=== PATIENT | male | born 1945 | race Caucasian/White ===

== ENCOUNTER → 2017-07-06 08:13 | Outpatient (CLI) | payer MEDICARE, BC, SELFPAY ==
[2017-07-06 09:32] LABS: Add Manual Diff / Slide Review NO; Basophils Percent Auto 1.1 % (0-2); Eosinophils Percent Auto 3.5 % (2-4); Hematocrit 39.4 % (41-53); Hemoglobin 13.5 g/dL (13.5-17.5); Lymphocytes Percent Auto 35.3 % (25-40); Mean Corpuscular HGB Conc 34.4 % (30-36); Mean Corpuscular Hemoglobin 29.5 PG (26-34); Mean Corpuscular Volume 85.9 fL (80-100); Monocytes Percent Auto 11.2 % (3-14); Neutrophils Absolute Auto 2100 /uL (3000-5900); Neutrophils Percent Auto 48.9 % (50-75); Platelet Count 170 X10^3/uL (150-400); Red Blood Cell Count 4.59 X10^6/uL (4.5-5.9); Red Cell Distribution Width 13.6 % (11.6-14.8); White Blood Cell Count 4.2 X10^3/uL (4.5-11.0)
[2017-07-06 09:57] LABS: Hemoglobin A1C% w Est Avg Glu 6.5 % (4.0-6.0)
[2017-07-06 09:58] LABS: Alanine Aminotransferase 47 IU/L (21-72); Albumin Globulin Ratio 1.5 (1.0-2.8); Alkaline Phosphatase 52 U/L (38-126); Aspartate Aminotransferase 28 IU/L (17-59); BUN Creatinine Ratio 18.6 (6-22); Bilirubin Total 0.9 mg/dL (0.2-1.3); Blood Urea Nitrogen 13 mg/dL (9-20); Calcium 8.7 mg/dL (8.4-10.2); Carbon Dioxide 33 mmol/L (22-32); Chloride 101 mmol/L (98-107); Cholesterol 142 mg/dL (140-199); Estimated Glomerular Filt Rate > 60.0 mL/min (>60); Globulin 2.7 g/dL (1.7-4.1); Glucose 98 mg/dL (80-110); HDL Cholesterol 54 mg/dL (40-60); HEMOLYSIS < 15 (0-50); LDL Cholesterol Calculated 65 mg/dL (<100); Potassium 3.7 mmol/L (3.4-5.1); Sodium 143 mmol/L (137-145); Total Protein 6.7 g/dL (6.3-8.2); Triglycerides 113 mg/dL (35-150)
[2017-07-06 16:07] LABS: Creatinine Urine Random 152.6 mg/dL
[2017-07-06 16:10] LABS: Microalbumi Creatinin Ratio Ur 23.5 ug/mg CR (<30); Microalbumin Urine Random 3.6 mg/dL (0-1.6)
== END ==
PROVIDERS: PCP Family Medicine; Visit Provider Family Medicine
DX: E11.9 Type 2 diabetes mellitus without complications (principal); E78.00 Pure hypercholesterolemia, unspecified; Z79.4 Long term (current) use of insulin
CPT/HCPCS: 36415; 80053; 80061; 82043; 82570; 83036; 85025

== ENCOUNTER 2017-09-15 08:56 | Emergency (ER) | payer MEDICARE, BC, SELFPAY ==
[2017-09-15 09:03] VITALS: BP 151/99; PULSE 67; RESP 15; TEMP 36.7; O2SAT 98; BMI 32.1
--- NOTE | 2017-09-15 09:03 | DI.RAD.S_ITS ---
PROCEDURE: XR KNEE LT 3V INDICATIONS: pain and swelling TECHNIQUE: 3 views of the knee were acquired. COMPARISON: [facility], , KNEE 3V LEFT, 09/06/2007, 8:38. FINDINGS: Bones: No fractures or dislocations. No suspicious bony lesions. Moderate lateral and medial compartment osteophytes. Severe patellofemoral compartment osteoarthritis. Soft tissues: Large suprapatellar joint effusion.. No suspicious soft tissue calcifications. IMPRESSION: 1. No fracture. No acute osseous lesion. If symptoms and/or clinical suspicion for pathology persists, further assessment with repeat radiographs (7-10 days) or advanced imaging (e.g. CT, MRI or bone scan) may be helpful. 2. Large nonspecific joint effusion. Dictated by: Erica Iniguez MD, PhD on 09/15/2017 at 8:27 Approved by: Erica Iniguez MD, PhD on 09/15/2017 at 8:28
--- NOTE | 2017-09-15 09:13 | ED.LOWEXIN ---
HPI - Extremity Injury (Lower) General Chief Complaint: Extremity Injury, Lower Stated Complaint: damaged left knee Time Seen by Provider: 09/15/17 09:13 Source: patient Mode of arrival: ambulatory Limitations: no limitations History of Present Illness HPI Narrative: Patient states he slipped and fell several days ago, but that over the last 24 hr, he has noticed that his knee has become more swollen. The patient has severe arthritis of his left knee and a weight, and has been told he needs a knee replacement. Patient denies any erythema over the knee, and denies immobility of the knee. No fevers. MD complaint: knee injury Onset (ago): day(s) Injury: Left: knee Type of Injury: blunt Severity: moderate Severity scale (1-10): 6 Exacerbating factors: nothing Context: fall Associated symptoms: swelling and ambulatory Other symptoms: none Related Data Home Medications Medication Instructions Recorded Confirmed loratadine [Claritin] 10 mg PO Q DAY PRN #0 08/28/10 09/15/17 multivitamin 1 tab PO DAILY #0 08/28/10 09/15/17 flaxseed oil 1 cap PO DAILY #0 11/13/10 09/15/17 Glucosamine Sulf-Chondroitin 1 tab PO BID #0 11/18/15 09/15/17 ascorbic acid (vitamin C) [Vitamin 1,000 mg PO QDAY #0 11/18/15 09/15/17 C] aspirin 81 mg PO QDAY #30 tab 11/18/15 09/15/17 Glucose: Home Monitoring Kit 0 kit DAILY 09/15/17 09/15/17 Hoffman 0 dev DAILY 09/15/17 09/15/17 atorvastatin 40 mg PO BEDTIME 09/15/17 09/15/17 Previous Rx's Medication Instructions Recorded Glucose: Test Strips 0 str QID #200 str 07/21/16 sitagliptin [Januvia] 100 mg PO QDAY #90 tab 07/21/16 hydrochlorothiazide 25 mg tablet 25 mg PO QDAY #90 tab 06/16/17 clopidogrel 75 mg tablet 75 mg PO QDAY #90 tab 06/24/17 finasteride 5 mg tablet 5 mg PO QDAY #90 tab 07/01/17 metoprolol tartrate 50 mg tablet 100 mg PO BID #360 tab 07/01/17 hydralazine 50 mg tablet 50 mg PO BID #180 tab 07/22/17 losartan 50 mg tablet 50 mg PO Q DAY #90 tab 07/22/17 metformin ER 500 mg 500 - 1,000 mg PO BID #180 tab 07/22/17 tablet,extended release 24 hr nifedipine ER 30 mg 30 mg PO Q DAY #90 tab 07/22/17 tablet,extended release 24 hr insulin glargine (U-100) 100 50 unit SUBCUT QDAY #9 ml 09/01/17 unit/mL (3 mL) subcutaneous pen hydrocodone-acetaminophen 1 tab PO Q4-6H PRN #10 tab 09/15/17 Allergies Allergy/AdvReac Type Severity Reaction Status Date / Time tamsulosin [TAMSULOSIN] AdvReac Severe DIARRHEA Verified 09/15/17 09:03 AND NAUSEA Review of Systems Review of Systems All systems reviewed & are unremarkable except as noted in HPI and below PFSH Social History Smoking Status: Never smoker Exam Initial Vital Signs Initial Vital Signs: Vital Signs Temperature 98.0 F 09/15/17 09:03 Pulse Rate 67 09/15/17 09:03 Respiratory Rate 15 09/15/17 09:03 Blood Pressure 151/99 H 09/15/17 09:03 Pulse Oximetry 98 09/15/17 09:03 Const General: cooperative and well developed Nutritional Appearance: well nourished Orientation: alert, awake, oriented x3 and not confused [facility] Head: normocephalic and atraumatic Ears: external ears normal Nose: external nose normal and No nasal discharge Face and sinus: sinuses nontender, face symmetric, no sinus tenderness and No dry mucous membranes Mouth: oral mucosae normal and moist mucous membranes Teeth and gingiva: dentition normal Throat: tonsils normal and uvula midline Eyes General: appearance normal, both eyes and all related structures Eyelids: eyelids normal Conjunctivae: conjunctivae normal Sclera: sclerae normal Pupils: PERRL EOM: EOM intact bilaterally Resp Effort & Inspection: normal respiratory effort Cardio Pulses: normal peripheral pulses Skin General: No no rashes or lesions noted, ecchymosis (Tiny, anterior left knee.) and No erythema Neuro General: alert, oriented x3, gait normal and no focal motor deficits Speech: speech normal Extrem Other: Patient has moderate edema of his left knee, with palpable effusion. No erythema or deformity is noted. Patient is able to flex to about 45?. He is able to fully extend. Psych Appearance: well kempt Mental Status: mental status grossly normal Attitude: cooperative Thought Content: normal and suicidality Judgment: judgment good Procedures Joint Aspiration Joint Asp./Inject. 1: Amount of anesthesia used (mL): 5 Needle Size Used: 18G Total fluid obtained (mL): 0 Patient Tolerated Procedure: Well Complications: unable to obtain fluid Additional Comments: Procedure was performed with sterile precautions. Three attempts were made to access the fusion from the superomedial aspect of the patient's left knee. Despite full intrusion of the needle at the point of maximal fluctuance, no fluid was able to be obtained from the joint space. Course Hospital Course: Patient remained stable through his stay in the emergency department. Attempt to tap the patient's knee effusion was unsuccessful. We have discussed symptomatic management at home. Patient is advised to elevate and ice the knee, and has also been advised to use an Yan wrap and pressure stockings to help encourage the edema to move out of the knee. PROCEDURE: XR KNEE LT 3V INDICATIONS: pain and swelling TECHNIQUE: 3 views of the knee were acquired. COMPARISON: [facility], , KNEE 3V LEFT, 09/06/2007, 8:38. FINDINGS: Bones: No fractures or dislocations. No suspicious bony lesions. Moderate lateral and medial compartment osteophytes. Severe patellofemoral compartment osteoarthritis. Soft tissues: Large suprapatellar joint effusion.. No suspicious soft tissue calcifications. IMPRESSION: 1. No fracture. No acute osseous lesion. If symptoms and/or clinical suspicion for pathology persists, further assessment with repeat radiographs (7-10 days) or advanced imaging (e.g. CT, MRI or bone scan) may be helpful. 2. Large nonspecific joint effusion. Dictated by: Erica Iniguez MD, PhD on 09/15/2017 at 8:27 Approved by: Erica Iniguez MD, PhD on 09/15/2017 at 8:28 Orders Ordered: ED Orders 09/15/17 09:03 XR knee LT 3V Stat Vital Signs - 8 hr 09/15/17 09:03 Temperature 98.0 F Pulse Rate 67 Respiratory Rate 15 Blood Pressure 151/99 H Pulse Oximetry 98 MDM - Extremity Injury (Lower) Medical Records Attestation: I reviewed the patient's medical records. MDM Narrative Medical decision making narrative: No emergent condition was identified. Patient was deemed stable for discharge home. He has been advised to follow up with Orthopedics. Discharge Plan Departure Patient Disposition: Home, Self-Care Clinical Impression: Acute knee pain, Effusion of knee joint, left Discharge Date/Time: 09/15/17 11:10 Interventions: ED Discharge Assessment Last Done: 09/15/17 11:20 Instructions: DI for Knee Pain Prescriptions: New hydrocodone-acetaminophen 5-325 mg tablet 1 tab PO Q4-6H PRN (Reason: pain) Qty: 10 RF: 0 No Action hydralazine 50 mg tablet 50 mg PO BID Qty: 180 RF: 3 losartan [Cozaar] 50 mg tablet 50 mg PO Q DAY Qty: 90 RF: 3 metformin [Glucophage XR] 500 mg tablet extended release 24 hr 500 - 1,000 mg PO BID Qty: 180 RF: 3 nifedipine [Procardia XL] 30 mg tablet extended release 24hr 30 mg PO Q DAY Qty: 90 RF: 3 loratadine [Claritin] 10 MG tablet 10 mg PO Q DAY PRN Qty: 0 RF: 0 multivitamin Tablet 1 tab PO DAILY Qty: 0 RF: 0 flaxseed oil 1,000 mg Capsule 1 cap PO DAILY Qty: 0 RF: 0 Glucosamine Sulf-Chondroitin 1 tab PO BID Qty: 0 RF: 0 ascorbic acid (vitamin C) [Vitamin C] 1,000 mg Tablet 1,000 mg PO QDAY Qty: 0 RF: 0 aspirin 81 MG tablet,delayed release (DR/EC) 81 mg PO QDAY Qty: 30 RF: 0 sitagliptin [Januvia] 100 MG tablet 100 mg PO QDAY Qty: 90 RF: 3 Glucose: Test Strips QID Qty: 200 RF: 3 hydrochlorothiazide 25 mg tablet 25 mg PO QDAY Qty: 90 RF: 3 clopidogrel [Plavix] 75 mg tablet 75 mg PO QDAY Qty: 90 RF: 3 metoprolol tartrate 50 mg tablet 100 mg PO BID Qty: 360 RF: 3 finasteride 5 mg tablet 5 mg PO QDAY Qty: 90 RF: 3 insulin glargine [Lantus Solostar U-100 Insulin] 100 unit/mL (3 mL) insulin pen 50 unit SUBCUT QDAY Qty: 9 RF: 3 Glucose: Home Monitoring Kit DAILY RF: 0 Hoffman DAILY RF: 0 atorvastatin 40 mg tablet 40 mg PO BEDTIME RF: 0 Referrals: [facility] [Provider Group] (Please follow up early next week if your knee is not feeling better.) Samir Zuniga MD [Primary Care Provider] -
--- NOTE | 2017-09-15 09:30 | PC.NURSE ---
Abigail at [facility]
[2017-09-15 11:01] VITALS: BP 153/87; PULSE 60; RESP 16; TEMP 36.4; O2SAT 96
--- NOTE | 2017-09-15 11:15 | PC.NURSE ---
1000 Yan wrap x 2 applied to L knee, cap refill <2 seconds. Pt. education about applying bandage tight while maintaining safe circulation
== END 2017-09-15 11:10 | disposition home or self-care (01) ==
PROVIDERS: Emergency Provider Emergency Medicine; Family Provider Family Medicine; PCP Family Medicine
DX: M25.462 Effusion, left knee (principal); W01.0XXA Fall on same level from slipping, tripping and stumbling without subsequent striking against object, initial encounter
CPT/HCPCS: 73562; 99282; 99283

== ENCOUNTER 2018-01-06 17:26 | Emergency (ER) | payer MEDICARE, BC, SELFPAY ==
[2018-01-06 17:28] VITALS: BP 164/85; PULSE 66; RESP 16; TEMP 36.8; O2SAT 96; BMI 34.0
--- NOTE | 2018-01-06 18:17 | DI.RAD.S_ITS ---
PROCEDURE: XR CHEST 2V INDICATIONS: shortness of breath TECHNIQUE: 2 views of the chest were acquired. COMPARISON: [facility], , CHEST 2 VIEW, 02/10/2016, 13:28. FINDINGS: Surgical changes and devices: None. Lungs and pleura: Left hemidiaphragm is elevated. No acute process. No pleural effusions or pneumothorax. Lungs are clear. Mediastinum: Mediastinal contours are normal. Heart size is normal. Bones and chest wall: No suspicious bony abnormalities. Soft tissues appear unremarkable. IMPRESSION: No acute process. Dictated by: Juliann Garnica M.D. on 01/06/2018 at 18:48 Approved by: Juliann Garnica M.D. on 01/06/2018 at 18:49
[2018-01-06 18:49] LABS: Add Manual Diff / Slide Review NO; Basophils Percent Auto 1.2 % (0-2); Eosinophils Percent Auto 3.2 % (2-4); Hematocrit 35.6 % (41-53); Hemoglobin 11.8 g/dL (13.5-17.5); Lymphocytes Percent Auto 26.9 % (25-40); Mean Corpuscular HGB Conc 33.3 % (30-36); Mean Corpuscular Hemoglobin 27.8 PG (26-34); Mean Corpuscular Volume 83.4 fL (80-100); Monocytes Percent Auto 9.9 % (3-14); Neutrophils Absolute Auto 3200 /uL (3000-5900); Neutrophils Percent Auto 58.8 % (50-75); Platelet Count 188 X10^3/uL (150-400); Red Blood Cell Count 4.27 X10^6/uL (4.5-5.9); Red Cell Distribution Width 14.1 % (11.6-14.8); White Blood Cell Count 5.4 X10^3/uL (4.5-11.0)
--- NOTE | 2018-01-06 18:56 | ED.SOB ---
HPI - SOB/Dyspnea General Chief Complaint: Shortness of Breath/Dyspnea Stated Complaint: SOB,LEFT ARM PAIN,HIST OF STROKE Time Seen by Provider: 01/06/18 18:42 Source: patient Mode of arrival: ambulatory Limitations: no limitations History of Present Illness Patient is a 72-year-old male who presents with shortness of breath. He says it has been ongoing for at least 2 weeks. He says he gets extreme shortness of breath with very minimal exertion. He has noted some lower leg bilateral swelling which does not go down with compression socks. He does have a slightly productive cough med does not actually get anything up he has not had fever weakness or chills. He has no chest tightness or pain. No known history of CHF. MD Complaint: shortness of breath Severity: moderate Relieving factors: rest Exacerbating factors: exertion Known history of: diabetes Treatment prior to arrival: none Related Data Home Medications Medication Instructions Recorded Confirmed loratadine [Claritin] 10 mg PO Q DAY PRN #0 08/28/10 09/15/17 multivitamin 1 tab PO DAILY #0 08/28/10 09/15/17 flaxseed oil 1 cap PO DAILY #0 11/13/10 09/15/17 Glucosamine Sulf-Chondroitin 1 tab PO BID #0 11/18/15 09/15/17 ascorbic acid (vitamin C) [Vitamin 1,000 mg PO QDAY #0 11/18/15 09/15/17 C] aspirin 81 mg PO QDAY #30 tab 11/18/15 09/15/17 Glucose: Home Monitoring Kit 0 kit DAILY 09/15/17 09/15/17 [place] 0 dev DAILY 09/15/17 09/15/17 atorvastatin 40 mg PO BEDTIME 09/15/17 09/15/17 Previous Rx's Medication Instructions Recorded hydrochlorothiazide 25 mg tablet 25 mg PO QDAY #90 tab 06/16/17 clopidogrel 75 mg tablet 75 mg PO QDAY #90 tab 06/24/17 finasteride 5 mg tablet 5 mg PO QDAY #90 tab 07/01/17 metoprolol tartrate 50 mg tablet 100 mg PO BID #360 tab 07/01/17 hydralazine 50 mg tablet 50 mg PO BID #180 tab 07/22/17 losartan 50 mg tablet 50 mg PO Q DAY #90 tab 07/22/17 metformin ER 500 mg 500 - 1,000 mg PO BID #180 tab 07/22/17 tablet,extended release 24 hr nifedipine ER 30 mg 30 mg PO Q DAY #90 tab 07/22/17 tablet,extended release 24 hr insulin glargine (U-100) 100 50 unit SUBCUT QDAY #9 ml 09/01/17 unit/mL (3 mL) subcutaneous pen hydrocodone-acetaminophen 1 tab PO Q4-6H PRN #10 tab 09/15/17 pen needle, diabetic 31 gauge x #100 each 10/13/1704/22 Insulin pen needles #100 each 10/18/17 sitagliptin 100 mg tablet 100 mg PO QDAY #90 tab 10/28/17 Glucose: Test Strips #100 each 01/03/18 furosemide [Lasix] 10 mg PO DAILY #3 tab 01/06/18 Allergies Allergy/AdvReac Type Severity Reaction Status Date / Time tamsulosin [TAMSULOSIN] AdvReac Severe DIARRHEA Verified 01/06/18 17:28 AND NAUSEA Review of Systems Review of Systems All systems reviewed & are unremarkable except as noted in HPI and below Constitutional Denies chills, Denies fever(s), Denies lethargy and Denies weakness ENT Ears, Nose, Mouth, and Throat: Denies change in voice, Denies neck pain and Denies sore throat Cardiovascular Reports as per HPI, Denies chest pain, Denies radiating jaw, neck or arm pain, Denies palpitations, Reports dyspnea on exertion and Denies orthopnea Respiratory Reports as per HPI, Denies hemoptysis, Denies excessive phlegm production, Reports dyspnea on exertion and Denies wheezing Gastrointestinal Gastrointestinal: Denies abdominal pain, Denies change in bowel habits, Denies diarrhea, Denies nausea and Denies vomiting Genitourinary Denies hematuria, Denies flank pain, Denies urinary incontinence and Denies urinary urgency Musculoskeletal Denies neck pain Integumentary/Breasts Denies pruritus, Denies erythema, Denies rash and Denies wounds Neurologic Denies weakness Endocrine Denies palpitations Allergic/Immunologic Denies wheezing [facility] Medical History TIA (transient ischemic attack) (Resolved 11/2015) Sleep apnea (Chronic Unknown) Osteoarthritis (Chronic Unknown) BPH (benign prostatic hyperplasia) (Chronic Unknown) Hernia (Resolved Unknown) Kidney stones (Chronic Unknown) Diabetes (Chronic Unknown) Hyperlipemia (Chronic Unknown) Hypertension (Chronic Unknown) Surgical History History of surgical removal of ganglion cyst (Resolved 2004) Hx of hernia repair (Resolved ~1949) Hx of lithotripsy (Resolved 02/2016) History of knee replacement (Resolved 12/2010) Hx of arthroscopy of left knee (Resolved Unknown) Family History Father Polio Mother No problems noted. Brother No problems noted. Social History Smoking Status: Never smoker Exam Initial Vital Signs Initial Vital Signs: Vital Signs Temperature 98.3 F 01/06/18 17:28 Pulse Rate 66 01/06/18 17:28 Respiratory Rate 16 01/06/18 17:28 Blood Pressure 164/85 H 01/06/18 17:28 Pulse Oximetry 96 01/06/18 17:28 GENERAL: Alert well-appearing male no acute distress HEENT: Head atraumatic,EOMI, pupils reactive, no JVD neck supple CARDIOVASCULAR: Regular rate and rhythm without murmurs, rubs or gallops. RESPIRATORY: Breath sounds equal bilaterally, no wheezes rales or rhonchi. ABDOMEN: Soft, nontender. Normoactive bowel sounds all 4 quadrants. No guarding or rebound. EXTREMITIES: +2 pitting edema bilaterally Normal range of motion, no clubbing. Neurovascularly intact NEUROLOGICAL: Alert and oriented x4.Normal gait and speech. SKIN: Warm, dry, no laceration, no petechiae, no rashes or lesions. Course Orders Ordered: ED Orders 01/06/18 18:17 Consult to Respiratory Therapy Evaluate & Treat XR chest 2V Stat EKG-12 Lead Stat 01/06/18 18:35 B Type Natriuretic Peptide Stat Complete Blood Count AUTO DIFF Stat Comprehensive Metabolic Panel Stat Troponin & CK Cardiac Panel Stat 01/06/18 18:50 Lactate (Lactic Acid) Stat 01/06/18 19:44 CT angio chest PE protocol Stat Discontinued Medications Furosemide (Lasix) 40 mg IV NOW ONE Stop: 01/06/18 20:55 Last Admin: 01/06/18 21:09 Dose: 40 mg Vital Signs - 8 hr 01/06/18 17:28 01/06/18 19:16 01/06/18 20:00 Temperature 98.3 F Pulse Rate 66 60 97 H Respiratory Rate 16 23 13 Blood Pressure 164/85 H Blood Pressure [Left Arm] 166/92 H 96/60 Pulse Oximetry 96 96 01/06/18 20:30 01/06/18 21:00 01/06/18 21:36 Temperature 98.4 F Pulse Rate 58 L 61 61 Respiratory Rate 17 11 L 18 Blood Pressure Blood Pressure [Left Arm] 173/88 H 164/93 H 160/94 H Pulse Oximetry 96 97 97 MDM - SOB/Dyspnea Lab Data Attestation: I reviewed the patient's lab results. Result diagrams: 01/06/18 18:35 01/06/18 18:35 Lab Results 01/06/18 01/06/18 01/06/18 Range/Units 18:35 18:35 18:35 WBC 5.4 Cancelled (4.5-11.0) X10^3/uL RBC 4.27 L Cancelled (4.5-5.9) X10^6/uL Hgb 11.8 L Cancelled (13.5-17.5) g/dL Hct 35.6 L Cancelled (41-53) % MCV 83.4 Cancelled (80-100) fL MCH 27.8 Cancelled (26-34) PG MCHC 33.3 Cancelled (30-36) % RDW 14.1 Cancelled (11.6-14.8) % Plt Count 188 Cancelled (150-400) X10^3/uL Neut % (Auto) 58.8 Cancelled (50-75) % Lymph % (Auto) 26.9 Cancelled (25-40) % [place] % (Auto) 9.9 Cancelled (3-14) % Eos % (Auto) 3.2 Cancelled (2-4) % Baso % (Auto) 1.2 Cancelled (0-2) % Neut # (Auto) 3200 Cancelled (1252-1919) /uL Sodium 141 (137-145) mmol/L Potassium 3.5 (3.4-5.1) mmol/L Chloride 101 (98-107) mmol/L Carbon Dioxide 30 (22-32) mmol/L BUN 15 (9-20) mg/dL Creatinine 0.70 (0.66-1.25) mg/dL Estimated GFR > 60.0 (>60) mL/min BUN/Creatinine Ratio 21.4 (6-22) Glucose 182 H (80-110) mg/dL Lactate (0.7-2.1) mmol/L Calcium 8.7 (8.4-10.2) mg/dL Total Bilirubin 0.5 (0.2-1.3) mg/dL AST 34 (17-59) IU/L ALT 40 (21-72) IU/L Alkaline Phosphatase 52 (38-126) U/L Total Creatine Kinase (55-170) U/L CK-MB (CK-2) (<2.37) ng/mL CK-MB (CK-2) Rel Index (1.5-5.0) % Troponin I (0.01-0.034) ng/mL B-Natriuretic Peptide 121.0 H (<100) Total Protein 6.7 (6.3-8.2) g/dL Albumin 4.0 (3.5-5.0) g/dL Globulin 2.7 (1.7-4.1) g/dL Albumin/Globulin Ratio 1.5 (1.0-2.8) 01/06/18 01/06/18 Range/Units 18:35 18:50 WBC (4.5-11.0) X10^3/uL RBC (4.5-5.9) X10^6/uL Hgb (13.5-17.5) g/dL Hct (41-53) % MCV (80-100) fL MCH (26-34) PG MCHC (30-36) % RDW (11.6-14.8) % Plt Count (150-400) X10^3/uL Neut % (Auto) (50-75) % Lymph % (Auto) (25-40) % [place] % (Auto) (3-14) % Eos % (Auto) (2-4) % Baso % (Auto) (0-2) % Neut # (Auto) (3833-7791) /uL Sodium (137-145) mmol/L Potassium (3.4-5.1) mmol/L Chloride (98-107) mmol/L Carbon Dioxide (22-32) mmol/L BUN (9-20) mg/dL Creatinine (0.66-1.25) mg/dL Estimated GFR (>60) mL/min BUN/Creatinine Ratio (6-22) Glucose (80-110) mg/dL Lactate 0.8 (0.7-2.1) mmol/L Calcium (8.4-10.2) mg/dL Total Bilirubin (0.2-1.3) mg/dL AST (17-59) IU/L ALT (21-72) IU/L Alkaline Phosphatase (38-126) U/L Total Creatine Kinase 321 H (55-170) U/L CK-MB (CK-2) 4.63 H (<2.37) ng/mL CK-MB (CK-2) Rel Index 1.4 L (1.5-5.0) % Troponin I < 0.012 (0.01-0.034) ng/mL B-Natriuretic Peptide (<100) Total Protein (6.3-8.2) g/dL Albumin (3.5-5.0) g/dL Globulin (1.7-4.1) g/dL Albumin/Globulin Ratio (1.0-2.8) Imaging Data Chest x-ray: Radiologist's impression: [place] [address] XRay Report Signed Patient: Keith Ramon EMR#: [id number] : 5Acct:[id number] Age/Sex: 72 / MDate of Service: 01/06/18 Loc: ED Accession Number: [id number] Procedure: XR chest 2V Ordering Provider: Shruti Horn D.O. PROCEDURE: XR CHEST 2V INDICATIONS: shortness of breath TECHNIQUE: 2 views of the chest were acquired. COMPARISON: [facility], , CHEST 2 VIEW, 02/10/2016, 13:28. FINDINGS: Surgical changes and devices: None. Lungs and pleura: Left hemidiaphragm is elevated. No acute process. No pleural effusions or pneumothorax. Lungs are clear. Mediastinum: Mediastinal contours are normal. Heart size is normal. Bones and chest wall: No suspicious bony abnormalities. Soft tissues appear unremarkable. IMPRESSION: No acute process. Dictated by: Juliann Garnica M.D. on 01/06/2018 at 18:48 CT PE:: Radiologist's impression: atient: Keith Ramon EMR#: [id number] : 5Acct:[id number] Age/Sex: 72 / MDate of Service: 01/06/18 Loc: ED Accession Number: [id number] Procedure: CT angio chest PE protocol Ordering Provider: Shruti Horn D.O. PROCEDURE: CT ANGIO CHEST PE PROTOCOL INDICATIONS: short of breath TECHNIQUE: After the administration of intravenous contrast, 2 mm thick sections acquired from the pulmonary apices to the posterior costophrenic angles. 3-dimensional maximum intensity projection (MIP) coronal and sagittal reformats were then acquired through the thorax. For radiation dose reduction, the following was used: automated exposure control, adjustment of mA and/or kV according to patient size. COMPARISON: None. FINDINGS: Image quality: Excellent. Pulmonary arteries: Pulmonary arteries are normal in size, and demonstrate no intraluminal filling defects to suggest central pulmonary embolism. Lungs and pleura: Left hemidiaphragm is elevated. Compressive atelectasis at the left lung base. No pneumothorax. Small right pleural effusion. Central and peripheral airways are patent. Mediastinum: Heart size is normal, without pericardial effusion. There is calcification of the coronary vasculature. No mediastinal or hilar adenopathy. Thoracic aorta is normal in caliber and enhancement. Esophagus is normal in caliber, without hiatal hernia. Bones and chest wall: No suspicious bony lesions. Ribs and thoracic spine appear intact throughout. Thyroid gland is within normal limits. No axillary or supraclavicular adenopathy. Abdomen: Visualized portions of the upper abdomen demonstrate a nonobstructing 3 mm diameter calculus within the superior pole left kidney. IMPRESSION: 1. No pulmonary embolus. 2. Small right pleural effusion. 3. Coronary artery disease. 4. Small nonobstructing left superior pole renal calculus. Dictated by: Juliann Ganrica M.D. on 01/06/2018 at 20:35 ECG Data Attestation: I personally reviewed and interpreted this ECG as follows: Prior ECG tracings: available for review Interpretation: Sinus rhythm rate 62 new left bundle branch CA interval [address] changes or T-wave inversions MDM Narrative Medical decision making narrative: The patient is not hypoxic he is ambulatory to the restroom without difficulty. BNP is very minimally elevated 121. He does have bilateral pitting edema. He is taking hydrochlorothiazide. Will start him on Lasix and hold hydrochlorothiazide for a few days to see if he has any improvement. CT for PE is negative he does have a small right pleural effusion. New left bundle branch but he has no chest pain at previous EKGs from 2017. Troponin is negative. Discharge Plan Departure Patient Disposition: Home Clinical Impression: Peripheral edema Discharge Date/Time: 01/06/18 21:55 Interventions: ED Discharge Assessment Last Done: 01/06/18 22:11 Instructions: DI for Heart Failure, DI for Peripheral Edema -- Bilateral Activity Restrictions/Additional Instructions: *You have been diagnosed with peripheral edema, possible CHF *What to do: Blood work x-ray and CT scan do not show significant amount of fluid or blood clot in her lungs. You may require an echocardiogram for further evaluation of your heart *Continue to take medications as directed: FAXED TO [facility] [place] ST[facility] HYDROCHLOROTHIAZIDE WHILE TAKING LASIX Lasix 20 mg once a day for 3 days *Follow up with your primary care provider in 2-3 days *Return to ER if you should have increasing shortness of breath chest tightness difficulty breathing chest pain worsening swelling or any new, worsening or concerning symptoms Prescriptions: New furosemide [Lasix] 20 mg tablet 10 mg PO DAILY Qty: 3 RF: 0 No Action hydralazine 50 mg tablet 50 mg PO BID Qty: 180 RF: 3 losartan [Cozaar] 50 mg tablet 50 mg PO Q DAY Qty: 90 RF: 3 metformin [Glucophage XR] 500 mg tablet extended release 24 hr 500 - 1,000 mg PO BID Qty: 180 RF: 3 nifedipine [Procardia XL] 30 mg tablet extended release 24hr 30 mg PO Q DAY Qty: 90 RF: 3 loratadine [Claritin] 10 MG tablet 10 mg PO Q DAY PRN Qty: 0 RF: 0 multivitamin Tablet 1 tab PO DAILY Qty: 0 RF: 0 flaxseed oil 1,000 mg Capsule 1 cap PO DAILY Qty: 0 RF: 0 Glucosamine Sulf-Chondroitin 1 tab PO BID Qty: 0 RF: 0 ascorbic acid (vitamin C) [Vitamin C] 1,000 mg Tablet 1,000 mg PO QDAY Qty: 0 RF: 0 aspirin 81 MG tablet,delayed release (DR/EC) 81 mg PO QDAY Qty: 30 RF: 0 hydrochlorothiazide 25 mg tablet 25 mg PO QDAY Qty: 90 RF: 3 clopidogrel [Plavix] 75 mg tablet 75 mg PO QDAY Qty: 90 RF: 3 metoprolol tartrate 50 mg tablet 100 mg PO BID Qty: 360 RF: 3 finasteride 5 mg tablet 5 mg PO QDAY Qty: 90 RF: 3 insulin glargine [Lantus Solostar U-100 Insulin] 100 unit/mL (3 mL) insulin pen 50 unit SUBCUT QDAY Qty: 9 RF: 3 pen needle, diabetic [Sure-Fine Pen [place]] 31 gauge x 3/16 needle .ROUTE .MEDSUPPLY Qty: 100 RF: 4 Insulin pen needles 12.7mmx29 gauge kit Qty: 100 RF: 4 sitagliptin [Januvia] 100 mg tablet 100 mg PO QDAY Qty: 90 RF: 3 Glucose: Test Strips .Route .MEDSUPPLY Qty: 100 RF: 11 Glucose: Home Monitoring Kit DAILY RF: 0 [place] DAILY RF: 0 atorvastatin 40 mg tablet 40 mg PO BEDTIME RF: 0 hydrocodone-acetaminophen 5-325 mg tablet 1 tab PO Q4-6H PRN (Reason: pain) Qty: 10 RF: 0 Referrals: Samir Zuniga MD [Primary Care Provider] -
[2018-01-06 19:07] LABS: Alanine Aminotransferase 40 IU/L (21-72); Albumin Globulin Ratio 1.5 (1.0-2.8); Alkaline Phosphatase 52 U/L (38-126); Aspartate Aminotransferase 34 IU/L (17-59); BUN Creatinine Ratio 21.4 (6-22); Bilirubin Total 0.5 mg/dL (0.2-1.3); Blood Urea Nitrogen 15 mg/dL (9-20); Calcium 8.7 mg/dL (8.4-10.2); Carbon Dioxide 30 mmol/L (22-32); Chloride 101 mmol/L (98-107); Estimated Glomerular Filt Rate > 60.0 mL/min (>60); Globulin 2.7 g/dL (1.7-4.1); Glucose 182 mg/dL (80-110); HEMOLYSIS < 15 (0-50); Potassium 3.5 mmol/L (3.4-5.1); Sodium 141 mmol/L (137-145); Total Protein 6.7 g/dL (6.3-8.2)
[2018-01-06 19:09] LABS: Creatine Kinase 321 U/L (55-170)
[2018-01-06 19:14] LABS: Lactate (Lactic Acid) 0.8 mmol/L (0.7-2.1)
[2018-01-06 19:16] VITALS: BP 166/92; PULSE 60; RESP 23; O2SAT 96
[2018-01-06 19:23] LABS: Troponin I < 0.012 ng/mL (0.01-0.034)
[2018-01-06 19:24] LABS: CKMB % Relative Index 1.4 % (1.5-5.0); Creatine Kinase MB 4.63 ng/mL (<2.37)
--- NOTE | 2018-01-06 19:44 | DI.CT.S_ITS ---
PROCEDURE: CT ANGIO CHEST PE PROTOCOL INDICATIONS: short of breath TECHNIQUE: After the administration of intravenous contrast, 2 mm thick sections acquired from the pulmonary apices to the posterior costophrenic angles. 3-dimensional maximum intensity projection (MIP) coronal and sagittal reformats were then acquired through the thorax. For radiation dose reduction, the following was used: automated exposure control, adjustment of mA and/or kV according to patient size. COMPARISON: None. FINDINGS: Image quality: Excellent. Pulmonary arteries: Pulmonary arteries are normal in size, and demonstrate no intraluminal filling defects to suggest central pulmonary embolism. Lungs and pleura: Left hemidiaphragm is elevated. Compressive atelectasis at the left lung base. No pneumothorax. Small right pleural effusion. Central and peripheral airways are patent. Mediastinum: Heart size is normal, without pericardial effusion. There is calcification of the coronary vasculature. No mediastinal or hilar adenopathy. Thoracic aorta is normal in caliber and enhancement. Esophagus is normal in caliber, without hiatal hernia. Bones and chest wall: No suspicious bony lesions. Ribs and thoracic spine appear intact throughout. Thyroid gland is within normal limits. No axillary or supraclavicular adenopathy. Abdomen: Visualized portions of the upper abdomen demonstrate a nonobstructing 3 mm diameter calculus within the superior pole left kidney. IMPRESSION: 1. No pulmonary embolus. 2. Small right pleural effusion. 3. Coronary artery disease. 4. Small nonobstructing left superior pole renal calculus. Dictated by: Juliann Garnica M.D. on 01/06/2018 at 20:35 Approved by: Juliann Garnica M.D. on 01/06/2018 at 20:37
[2018-01-06 20:00] VITALS: BP 96/60; PULSE 97; RESP 13
[2018-01-06 20:30] VITALS: BP 173/88; PULSE 58; RESP 17; O2SAT 96
[2018-01-06 21:00] VITALS: BP 164/93; PULSE 61; RESP 11; O2SAT 97
[2018-01-06] MEDS: FUROSEMIDE 40 MG/4 ML VIAL IV (21:09)
[2018-01-06 21:36] VITALS: BP 160/94; PULSE 61; RESP 18; TEMP 36.9; O2SAT 97
== END 2018-01-06 21:55 | disposition home or self-care (01) ==
PROVIDERS: Emergency Provider Emergency Medicine; Family Provider Family Medicine; PCP Family Medicine
DX: R60.9 Edema, unspecified (principal)
CPT/HCPCS: 36591; 71046; 71275; 80053; 82550; 82553; 83605; 83880; 84484; 85025; 93005; 96374; 99283; 99285; J1940

== ENCOUNTER → 2018-01-25 09:34 | Outpatient (CLI) | payer MEDICARE, BC, SELFPAY ==
--- NOTE | 2018-01-25 | DI.ECHO.S_ITS ---
[facility]---------+ [facility] +---------+ : : [address] : : : : [id number] : : : : Phone: [phone] Echocardiogram Report + + :Name: LEANN OROZCO Study Date: 01/25/2018 Height: 74 in : :[facility] Exam Location: [facility] Weight: 265 lb : : Gender: Male BSA: 2.4 m2 : :: 1945 Age: 72 yrs BP: 135/70 mmHg: :Reason For Study: HEART FAILURE : :Ordering Physician: Samir : :Ef[place] Performed By: Mark Shay : + + Interpretation Summary Left ventricular systolic function is normal without focal wall motion abnormalities with the ejection fraction visually estimated to be 60-65%. Left ventricular wall thickness is at the upper limits of normal. Diastolic parameters suggest a relaxation abnormality of the left ventricle, consistent with probable normal filling pressures. The right ventricle is at the upper limits of normal in size but right ventricular systolic function appears normal. The right ventricular systolic pressure is estimated to be at least 28 mmHg based on an estimated right atrial pressure of 3 mm Hg. Both atria are severely dilated. There is mild tricuspid regurgitation but no other significant valvular heart disease. The ascending aorta is moderately enlarged and the aortic arch is mildly enlarged. Procedure: A two-dimensional transthoracic echocardiogram with color flow and Doppler was performed. The study quality was technically adequate. There is no prior echocardiogram noted for this patient. The patient was in normal sinus rhythm during the exam. Left Ventricle: The left ventricle is normal in size. Left ventricular wall thickness is at the upper limits of normal. Left ventricular systolic function is normal without focal wall motion abnormalities. The ejection fraction is estimated to be 60-65%. Diastolic parameters suggest a relaxation abnormality of the left ventricle, consistent with probable normal filling pressures. Right Ventricle: The right ventricle is at the upper limits of normal in size. The right ventricular systolic function is normal. Atria: Both atria are severely dilated. The interatrial septum is intact with no evidence for an atrial septal defect. Mitral Valve: The mitral valve is normal in structure and function. There is trace mitral regurgitation. Aortic Valve: The aortic valve is not well visualized. The aortic valve is slightly calcified. The aortic valve opens well. There is no aortic valve stenosis. No aortic regurgitation is present. Tricuspid Valve: The tricuspid valve is normal in structure and function. There is mild tricuspid regurgitation. The right ventricular systolic pressure is estimated to be at least 28 mmHg based on an estimated right atrial pressure of 3 mm Hg. Pulmonic Valve: The pulmonic valve is normal in structure and function. There is no pulmonic valvular regurgitation. There is no other significant valvular heart disease. Great Vessels: The aortic root is normal size. The ascending aorta is moderately enlarged. The aortic arch is mildly enlarged. The pulmonary artery is normal size. The IVC is of normal diameter and collapses greater than 50% with a sniff. This suggests a low right atrial pressure of 3 mm Hg. Pericardium/ Pleura There is no pericardial effusion. There is no pleural effusion. MMode/2D Measurements & Calculations LVIDd: 5.1 cm LVOT diam: 2.3 cm LVIDs: 3.3 cm Ao root diam: 3.9 cm FS: 34.5 % Aortic Jxn: 3.2 cm EPSS: 0.65 cm asc Aorta Diam: 4.2 cm IVSd: 1.0 cm Ao Arch Diam (Prox Trans): 3.3 cm LVPWd: 1.1 cm LV luo. diameter/BSA (cm/m^2): 2.1 LV sys. diameter/BSA (cm/m^2): 1.4 LA dimension: 4.8 cm RA long axis: 6.6 cm LA A2 area: 35.0 cm2 RA area: 30.7 cm2 LA A4 area: 36.9 cm2 RA vol: 121.6 ml LA length (vol): 7.5 cm RA : 49.7 ml/m2 LA vol: 146.4 ml IVC diam: 1.8 cm LA vol index: 59.8 ml/m2 RVD1 (basal): 4.9 cm RVD2 (mid): 4.3 cm Doppler Measurements & Calculations Ao V2 max: 149.9 cm/sec LVOT Max Bryn: 111.1 cm/sec Ao V2 mean: 111.3 cm/sec LV V1 max P.9 mmHg Ao max P.0 mmHg LV V1 VTI: 25.9 cm Ao mean P.3 mmHg ILANA(I,D): 3.3 cm2 Ao V2 VTI: 32.7 cm ILANA(V,D): 3.1 cm2 sev ratio: 0.79 ILANA indexed to BSA (cm^2/m^2): 1.4 MV E max bryn: 64.2 cm/sec TR max bryn: 248.7 cm/sec MV A max bryn: 68.5 cm/sec TR max P.7 mmHg MV E/A: 0.94 PA V2 max: 86.2 cm/sec Med Peak E' Bryn: 5.6 cm/sec PA V2 mean: 54.6 cm/sec E/E' med: 11.5 PA mean P.4 mmHg Lat Peak E' Bryn: 11.1 cm/sec PA pr(Accel): 34.1 mmHg E/E' lat: 5.8 PA Accel Time: 0.09 sec E/e' average: 8.6 MV dec time: 0.23 sec Pulm A Revs Bryn: 22.5 cm/sec SV(LVOT): 109.3 ml Reading Physician:DANIEL
== END ==
PROVIDERS: PCP Family Medicine; Visit Provider Family Medicine
DX: I50.9 Heart failure, unspecified (principal)
CPT/HCPCS: 93306

== ENCOUNTER → 2018-02-22 07:50 | Outpatient (CLI) | payer MEDICARE, BC, SELFPAY ==
[2018-02-22 08:52] LABS: Add Manual Diff / Slide Review NO; Basophils Absolute Auto 0 /uL (0-100); Basophils Percent Auto 1.1 % (0-2); Eosinophils Absolute Auto 100 /uL (0-450); Hematocrit 32.8 % (41-53); Hemoglobin 10.6 g/dL (13.5-17.5); Lymphocytes Absolute Auto 1700 /uL (1100-4500); Lymphocytes Percent Auto 38.1 % (25-40); Mean Corpuscular HGB Conc 32.4 % (30-36); Mean Corpuscular Hemoglobin 26.1 PG (26-34); Mean Corpuscular Volume 80.4 fL (80-100); Monocytes Absolute Auto 500 /uL (0-900); Monocytes Percent Auto 10.8 % (3-14); Neutrophils Absolute Auto 2100 /uL (1500-7000); Platelet Count 201 X10^3/uL (150-400); Red Blood Cell Count 4.08 X10^6/uL (4.5-5.9); Red Cell Distribution Width 13.8 % (11.6-14.8); White Blood Cell Count 4.5 X10^3/uL (4.5-11.0)
[2018-02-22 09:00] LABS: Alanine Aminotransferase 37 IU/L (21-72); Albumin 4.1 g/dL (3.5-5.0); Albumin Globulin Ratio 1.4 (1.0-2.8); Alkaline Phosphatase 49 U/L (38-126); Aspartate Aminotransferase 26 IU/L (17-59); BUN Creatinine Ratio 24.3 (6-22); Bilirubin Total 0.6 mg/dL (0.2-1.3); Blood Urea Nitrogen 17 mg/dL (9-20); Calcium 8.7 mg/dL (8.4-10.2); Carbon Dioxide 31 mmol/L (22-32); Chloride 102 mmol/L (98-107); Cholesterol 121 mg/dL (140-199); Estimated Glomerular Filt Rate > 60.0 mL/min (>60); Glucose 74 mg/dL (80-110); HDL Cholesterol 46 mg/dL (40-60); HEMOLYSIS < 15 (0-50); LDL Cholesterol Calculated 59 mg/dL (<100); Potassium 3.5 mmol/L (3.4-5.1); Sodium 142 mmol/L (137-145); Total Protein 7.1 g/dL (6.3-8.2); Triglycerides 81 mg/dL (35-150)
[2018-02-22 09:21] LABS: Hemoglobin A1C% w Est Avg Glu 6.4 % (4.0-6.0)
== END ==
PROVIDERS: PCP Family Medicine; Visit Provider Family Medicine
DX: E11.9 Type 2 diabetes mellitus without complications (principal); Z79.4 Long term (current) use of insulin
CPT/HCPCS: 36415; 80053; 80061; 83036; 85025

== ENCOUNTER → 2018-03-15 08:10 | Outpatient (CLI) | payer MEDICARE, BC, SELFPAY | PROVIDERS: PCP Family Medicine; Visit Provider Internal Medicine | DX: I25.119 Atherosclerotic heart disease of native coronary artery with unspecified angina pectoris (principal); Z53.9 Procedure and treatment not carried out, unspecified reason ==

== ENCOUNTER → 2018-05-16 11:06 | Outpatient (CLI) | payer MEDICARE, BC, SELFPAY ==
[2018-05-16 12:46] LABS: BUN Creatinine Ratio 32.9 (6-22); Blood Urea Nitrogen 23 mg/dL (9-20); Calcium 9.2 mg/dL (8.4-10.2); Carbon Dioxide 29 mmol/L (22-32); Chloride 102 mmol/L (98-107); Estimated Glomerular Filt Rate > 60.0 mL/min (>60); Glucose 118 mg/dL (80-110); HEMOLYSIS < 15 (0-50); Potassium 4.5 mmol/L (3.4-5.1); Sodium 139 mmol/L (137-145)
== END ==
PROVIDERS: Family Provider Internal Medicine; PCP Family Medicine; Visit Provider Nurse Practitioner Gerontology
DX: I10 Essential (primary) hypertension (principal)
CPT/HCPCS: 36415; 80048

== ENCOUNTER → 2018-09-04 11:28 | Outpatient (CLI) | payer MEDICARE, BC, SELFPAY ==
--- NOTE | 2018-09-04 | DI.CT.S_ITS ---
PROCEDURE: CT ABDOMEN PELVIS W CON INDICATIONS: Iron deficiency anemia secondary to blood loss TECHNIQUE: After the administration of intravenous contrast, 5 mm thick sections acquired from the diaphragms to the symphysis. 5 mm thick coronal and sagittal reformats were performed. For radiation dose reduction, the following was used: automated exposure control, adjustment of mA and/or kV according to patient size. COMPARISON: [facility], CT, CT ANGIO CHEST PE PROTOCOL, 01/06/2018, 19:47. [facility], CT, IVP (ABD & PEL WWO CONTRAST), 01/16/2016, 9:39. FINDINGS: Image quality: Excellent. ABDOMEN: Lung bases: There is a right lower lobe infrahilar ground glass nodule measuring approximately 1.7 cm with indistinct margins. There is a minimal right pleural effusion. Chronic left basilar atelectasis or scarring redemonstrated. The Heart size is normal. Solid organs: There is a small hypodensity in the left hepatic lobe measuring up to 6 mm which is too small to characterize but appears similar to the prior study and likely represents a cyst. The gallbladder appears within normal limits without calcified gallstones. Biliary system is non-dilated. Pancreas enhances normally. No peripancreatic fat stranding or fluid collections. No pancreatic duct dilatation. The spleen is normal in size. No adrenal nodules. Kidneys demonstrate no hydronephrosis. There are small bilateral nonobstructing renal stones including a 6 mm stone in the inferior pole of the right kidney and 3 stones in the left kidney with the largest measuring up to 5 mm. Peritoneum and bowel: Stomach, small bowel, and colon loops are normal in caliber and wall thickness. The appendix is normal in appearance. No discrete mass identified within the stomach or bowel loops. No free fluid or air. Nodes and vessels: No retroperitoneal or mesenteric adenopathy. Aorta and inferior vena cava are normal in caliber. Miscellaneous: No ventral hernias. PELVIS: Genitourinary: Bladder wall thickness is normal. Miscellaneous: No inguinal hernias or adenopathy. Bones: No suspicious bony lesions. No vertebral body compression fractures. IMPRESSION: 1. No discrete gastric or bowel mass identified within the limitations of the study. 2. Irregular right lower lobe infrahilar ground glass nodule measuring up to 1.7 cm. The finding is new compared to prior studies. Differential includes an infectious or inflammatory process as well as a developing neoplasm such as a variant of adenocarcinoma. Recommend followup in 3 months to demonstrate resolution or stability. 3. Bilateral nephrolithiasis without evidence of hydronephrosis. Dictated by: Maximiliano Ramon M.D. on 09/04/2018 at 17:14 Approved by: Maximiliano Ramon M.D. on 09/04/2018 at 17:23
== END ==
PROVIDERS: Family Provider Internal Medicine; PCP Family Medicine; Visit Provider Nurse Practitioner Adult Health
DX: D50.0 Iron deficiency anemia secondary to blood loss (chronic) (principal); N20.0 Calculus of kidney
CPT/HCPCS: 74177; Q9967

== ENCOUNTER → 2018-09-30 10:39 | Outpatient (CLI) | payer MEDICARE, BC, SELFPAY ==
[2018-09-30 12:54] LABS: Hematocrit 42.4 % (41-53); Hemoglobin 14.4 g/dL (13.5-17.5)
[2018-09-30 13:16] LABS: HEMOLYSIS < 15 (0-50); Iron 99 ug/dL (49-181)
[2018-09-30 13:29] LABS: Transferrin 262 mg/dL (206-381)
[2018-09-30 13:43] LABS: Percent Iron Saturation 31 % (20-50); Total Iron Binding Capacity 321 ug/dL (261-462)
[2018-09-30 13:46] LABS: Ferritin 19.4 ng/mL (17.9-464)
== END ==
PROVIDERS: PCP Family Medicine
DX: D64.9 Anemia, unspecified (principal)
CPT/HCPCS: 36415; 82728; 83540; 83550; 85014; 85018

== ENCOUNTER → 2019-03-12 10:56 | Outpatient (CLI) | payer MEDICARE, BC, SELFPAY ==
--- NOTE | 2019-03-12 | DI.US.S_ITS ---
PROCEDURE: US PERIPH VENOUS LOW EXTREM LT INDICATIONS: EDEMA 3 WEEKS LEFT KNEE REPLACEMENT TECHNIQUE: Real-time imaging, as well as color and pulse Doppler interrogation, were performed of the lower extremity deep veins from the inguinal ligament to the popliteal fossa. COMPARISON: None. FINDINGS: The common femoral, femoral and popliteal veins are normally compressible, and free of intraluminal thrombus. Color and pulse Doppler demonstrate normal phasic intraluminal flow. There is normal augmentation response to distal compression maneuver. IMPRESSION: No deep vein thrombosis of the left lower extremity. Dictated by: Che Cruz M.D. on 03/12/2019 at 16:54 Approved by: Che Cruz M.D. on 03/12/2019 at 16:54
== END ==
PROVIDERS: PCP Family Medicine; Referring Provider Orthopaedic Surgery; Visit Provider Orthopaedic Surgery
DX: R60.0 Localized edema (principal); Z96.651 Presence of right artificial knee joint
CPT/HCPCS: 93971

== ENCOUNTER → 2019-05-17 11:28 | Outpatient (CLI) | payer MEDICARE, BC, SELFPAY ==
--- NOTE | 2019-05-17 | DI.US.S_ITS ---
ULTRASOUND OF RIGHT BREAST: 05/17/2019 CLINICAL: Palpable right breast lump. Comparison is made to exam dated: 05/17/2019 [facility]. Color flow and real-time ultrasound of the right breast were performed. Zarate scale images of the real-time examination were reviewed. There is a benign 2.4 cm x 3.4 cm x 1 cm area of fibroglandular tissue in the right breast central to the nipple in the retroareolar region. This correlates as palpated and with mammography findings. No other suspicious findings. IMPRESSION: BENIGN There is no sonographic evidence of malignancy. The 2.4 cm x 3.4 cm x 1 cm area of fibroglandular tissue in the right breast is consistent wth benign gynecomastia. Clinical follow up if there are any further concerns of developing palpable abnormality. Findings and recommendations conveyed to the patient at time of exam. This exam was interpreted at Station ID: [id number]. Electronically Signed By: Darlene drake/:05/17/2019 12:30:12 letter sent: Normal Exam Ultrasound BI-RADS: 2 Benign
--- NOTE | 2019-05-17 | DI.MG.S_ITS ---
MALE BILATERAL DIGITAL DIAGNOSTIC MAMMOGRAM 3D/2D: 05/17/2019 CLINICAL: Right breast lump. Baseline exam. No prior exams were available for comparison. There is gynecomastia in the right breast in the sub-areolar depth that correlates with palpable abnormality. No significant masses, calcifications, or other findings are seen in either breast. IMPRESSION: INCOMPLETE: NEEDS ADDITIONAL IMAGING EVALUATION Asymmetric right breast gynecomastia correlates to palpable abnormality. Ultrasound for confirmation is recommended and was performed immediately following this exam. This exam was interpreted at Station ID: [id number]. NOTE: For mammograms, a report in lay terms will be sent to the patient. Approximately 15% of breast malignancies will not be visualized mammographically. In the management of a palpable breast mass, a negative mammogram must not discourage biopsy of a clinically suspicious lesion. Electronically Signed By: Darlene drake/:05/17/2019 12:12:59 ACR BI-RADS Category 0: Incomplete [id number]
== END ==
PROVIDERS: PCP Family Medicine; Referring Provider Family Medicine; Visit Provider Family Medicine
DX: R92.8 Other abnormal and inconclusive findings on diagnostic imaging of breast (principal); N62 Hypertrophy of breast; N64.4 Mastodynia
CPT/HCPCS: 76642; 77066; G0279

== ENCOUNTER → 2019-05-17 11:29 | Outpatient (CLI) | payer MEDICARE, BC, SELFPAY | PROVIDERS: PCP Family Medicine; Referring Provider Family Medicine; Visit Provider Family Medicine | DX: N64.4 Mastodynia (principal); N62 Hypertrophy of breast ==

== ENCOUNTER → 2019-09-18 07:47 | Outpatient (CLI) | payer MEDICARE, BC, SELFPAY ==
--- NOTE | 2019-09-18 | DI.MRI.S_ITS ---
PROCEDURE: MR LUMBAR SPINE WO CON INDICATIONS: SPINAL STENOSIS TECHNIQUE: Noncontrast sagittal T1 spin echo and T2 fast echo, sagittal STIR, axial T1 and T2 fast spin echo through the lumbar spine. In cases with scoliosis, additional coronal T2 fast spin echo may be performed. COMPARISON: None. FINDINGS: Image quality: Excellent. Alignment and Curvature: There is trace L2-L3 and L3-L4 retrolisthesis. There is trace L4-L5 and L5-S1 anterolisthesis. There is mild convex left lumbar spine curvature. Bone Marrow: Mild reactive endplate changes noted adjacent to the L1-L2, L2-L3, L3-L4, L4-L5 and L5-S1 discs. No acute vertebral body compression fractures. Spinal Cord: Conus medullaris terminates at the L1 level. Visualized cord demonstrates normal signal and size. Paraspinous Soft Tissues: No paravertebral masses. L1-L2: Loss of disc signal and slight loss of disc height. Moderate, diffuse disc bulge. Small left central disc protrusion. Mild narrowing the central canal. Mild bilateral neural foraminal narrowing. No neural compression. Fissure noted the posterior annulus. L2-L3: Loss of disc signal and height. Moderate, diffuse disc bulge. Mild bilateral facet hypertrophy. Mild ligamentum flavum hypertrophy. Moderate narrowing of the central canal. Moderate bilateral neural foraminal narrowing. No neural compression. Fissure noted in the posterior annulus. L3-L4: Loss of disc signal and height. Mild to moderate diffuse disc bulge. Mild bilateral facet hypertrophy. Mild ligamentum flavum hypertrophy. Moderate narrowing of the central canal. Moderate right and mild left neural foraminal narrowing. No neural compression. Fissure noted in the posterior annulus. L4-L5: Loss of disc signal. Mild, diffuse disc bulge. Moderate right and mild left facet hypertrophy. Moderate to severe narrowing of the central canal. Severe right and moderate left neural foraminal narrowing with compression of the exiting right L4 nerve root. L5-S1: Loss of disc signal and height. Mild, diffuse disc bulge. Mild right and moderate left facet hypertrophy. No central stenosis. Mild right and severe left neural foraminal narrowing with compression of the exiting left L5 nerve root. Fissure noted in the posterior annulus. IMPRESSION: 1. Multilevel degenerative disc disease. 2. Multilevel facet arthropathy. 3. Moderate to severe L4-L5 central canal narrowing. 4. Severe right L4-L5 neural foraminal narrowing with compression of the exiting right L4 nerve root. Severe left L5-S1 neural foraminal narrowing with compression of the exiting left L5 nerve root. Dictated by: Erica Iniguez MD, PhD on 09/18/2019 at 10:41 Approved by: Erica Iniguez MD, PhD on 09/18/2019 at 11:18
== END ==
PROVIDERS: PCP Family Medicine; Referring Provider Orthopaedic Surgery; Visit Provider Orthopaedic Surgery
DX: M48.07 Spinal stenosis, lumbosacral region (principal); M48.061 Spinal stenosis, lumbar region without neurogenic claudication; M51.36 Other intervertebral disc degeneration, lumbar region; M51.37 Other intervertebral disc degeneration, lumbosacral region; M47.816 Spondylosis without myelopathy or radiculopathy, lumbar region; M47.817 Spondylosis without myelopathy or radiculopathy, lumbosacral region
CPT/HCPCS: 72148

== ENCOUNTER → 2020-08-20 12:17 | Outpatient (CLI) | payer MEDICARE, BC, SELFPAY ==
[2020-08-20 12:56] LABS: Add Manual Diff / Slide Review NO; Basophils Absolute Auto 0 /uL (0-100); Basophils Percent Auto 1.1 % (0-2); Eosinophils Absolute Auto 100 /uL (0-450); Eosinophils Percent Auto 2.4 % (2-4); Hematocrit 39.8 % (41-53); Hemoglobin 13.1 g/dL (13.5-17.5); Lymphocytes Absolute Auto 1200 /uL (1100-4500); Lymphocytes Percent Auto 26.9 % (25-40); Mean Corpuscular HGB Conc 32.9 % (30-36); Mean Corpuscular Hemoglobin 29.2 PG (26-34); Monocytes Absolute Auto 400 /uL (0-900); Monocytes Percent Auto 8.6 % (3-14); Neutrophils Absolute Auto 2800 /uL (1500-7000); Platelet Count 179 X10^3/uL (150-400); Red Blood Cell Count 4.47 X10^6/uL (4.5-5.9); Red Cell Distribution Width 14.9 % (11.6-14.8); White Blood Cell Count 4.6 X10^3/uL (4.5-11.0)
[2020-08-20 13:14] LABS: Alanine Aminotransferase 46 IU/L (<50); Albumin 4.1 g/dL (3.5-5.0); Albumin Globulin Ratio 1.5 (1.0-2.8); Alkaline Phosphatase 56 U/L (38-126); Aspartate Aminotransferase 47 IU/L (17-59); BUN Creatinine Ratio 21.2 (6-22); Bilirubin Total 0.7 mg/dL (0.2-1.3); Blood Urea Nitrogen 14 mg/dL (9-20); Calcium 8.9 mg/dL (8.4-10.2); Carbon Dioxide 29 mmol/L (22-32); Chloride 106 mmol/L (98-107); Estimated Glomerular Filt Rate > 60.0 mL/min (>60); Globulin 2.8 g/dL (1.7-4.1); Glucose 106 mg/dL (80-110); HEMOLYSIS < 15 (0-50); Potassium 4.1 mmol/L (3.4-5.1); Sodium 141 mmol/L (137-145); Total Protein 6.9 g/dL (6.3-8.2)
== END ==
PROVIDERS: PCP Family Medicine; Referring Provider Orthopaedic Surgery; Visit Provider Orthopaedic Surgery
DX: Z86.79 Personal history of other diseases of the circulatory system (principal); I10 Essential (primary) hypertension; Z01.818 Encounter for other preprocedural examination
CPT/HCPCS: 36415; 80053; 85025

== ENCOUNTER → 2021-02-18 08:54 | Outpatient (CLI) | payer MEDICARE, BC, SELFPAY ==
[2021-02-18 09:55] LABS: Add Manual Diff / Slide Review NO; Basophils Absolute Auto 0 /uL (0-100); Basophils Percent Auto 0.7 % (0-2); Eosinophils Absolute Auto 100 /uL (0-450); Eosinophils Percent Auto 2.6 % (2-4); Hematocrit 37.4 % (41-53); Hemoglobin 12.4 g/dL (13.5-17.5); Lymphocytes Absolute Auto 1300 /uL (1100-4500); Mean Corpuscular HGB Conc 33.1 % (30-36); Mean Corpuscular Volume 84.7 fL (80-100); Monocytes Absolute Auto 400 /uL (0-900); Monocytes Percent Auto 9.8 % (3-14); Neutrophils Absolute Auto 2100 /uL (1500-7000); Neutrophils Percent Auto 52.9 % (50-75); Platelet Count 159 X10^3/uL (150-400); Red Blood Cell Count 4.41 X10^6/uL (4.5-5.9); Red Cell Distribution Width 15.6 % (11.6-14.8); White Blood Cell Count 3.9 X10^3/uL (4.5-11.0)
[2021-02-18 10:08] LABS: Alanine Aminotransferase 23 IU/L (<50); Albumin Globulin Ratio 1.5 (1.0-2.8); Alkaline Phosphatase 57 U/L (38-126); Aspartate Aminotransferase 24 IU/L (17-59); BUN Creatinine Ratio 25.4 (6-22); Bilirubin Total 0.6 mg/dL (0.2-1.3); Blood Urea Nitrogen 15 mg/dL (9-20); Calcium 8.9 mg/dL (8.4-10.2); Carbon Dioxide 29 mmol/L (22-32); Estimated Glomerular Filt Rate > 60.0 mL/min (>60); Globulin 2.7 g/dL (1.7-4.1); Glucose 73 mg/dL (80-110); HEMOLYSIS < 15 (0-50); Potassium 3.7 mmol/L (3.4-5.1); Sodium 141 mmol/L (137-145); Total Protein 6.7 g/dL (6.3-8.2)
[2021-02-18 10:11] LABS: Chloride 106 mmol/L (98-107)
== END ==
PROVIDERS: PCP Family Medicine; Referring Provider Internal Medicine; Visit Provider Internal Medicine
DX: I50.32 Chronic diastolic (congestive) heart failure (principal)
CPT/HCPCS: 36415; 80053; 85025

== ENCOUNTER → 2022-03-19 08:22 | Outpatient (CLI) | payer MEDICARE, BC, SELFPAY ==
[2022-03-19 09:45] LABS: BUN Creatinine Ratio 24.6 (6-22); Blood Urea Nitrogen 14 mg/dL (9-20); Calcium 8.7 mg/dL (8.4-10.2); Carbon Dioxide 29 mmol/L (22-32); Chloride 103 mmol/L (98-107); Estimated Glomerular Filt Rate > 60 mL/min (>60); Glucose 68 mg/dL (80-110); HEMOLYSIS < 15 (0-50); Potassium 3.7 mmol/L (3.4-5.1); Sodium 142 mmol/L (137-145)
== END ==
PROVIDERS: PCP Family Medicine; Referring Provider Nurse Practitioner; Visit Provider Nurse Practitioner
DX: I50.32 Chronic diastolic (congestive) heart failure (principal)
CPT/HCPCS: 36415; 80048

== ENCOUNTER → 2022-06-30 08:14 | Outpatient (CLI) | payer MEDICARE, BC, SELFPAY ==
--- NOTE | 2022-06-30 08:17 | DI.CT.S_ITS ---
PROCEDURE: CT KIDNEY URETER BLADDER (KUB) INDICATIONS: RIGHT FLANK PAIN TECHNIQUE: Axial sections were acquired from the lung bases to the pubic symphysis. Coronal and sagittal reformats were performed. For radiation dose reduction, the following was used: automated exposure control, adjustment of mA and/or kV according to patient size. COMPARISON: [facility], CT, CT ABDOMEN PELVIS W CON, 09/04/2018, 13:07. [facility], CT, KIDNEY/ URETER/BLADDER, 03/08/2012, 9:59. FINDINGS: Image quality: Excellent. Lung bases: There is chronic left hemidiaphragm elevation. Trace pleural effusions bilaterally. Left basilar scars and atelectasis. Heart: Normal size. Mild coronary artery calcification. URINARY: Right Kidney: There is a 3 mm stone in the the inferior pole of the right kidney. No hydronephrosis. There is a 2.6 cm cyst in right kidney. Mild perinephric stranding. Right Ureter: No ureteral stones or hydroureter. Left Kidney: There is a cluster of 3 stones measuring 1-5 mm, demonstrating CT density 451 HU. No hydronephrosis. Mild perinephric stranding. Left Ureter: No ureteral stones or hydroureter. Bladder: Semicontracted causing appearance of mild thickening. No stones. ABDOMEN: Liver: Unremarkable. Gallbladder: Unremarkable. Biliary ducts: Unremarkable. Pancreas: Unremarkable. Spleen: Unremarkable. Adrenal Glands: Unremarkable. Stomach and Bowel: Stomach, small bowel loops, and colon are normal in caliber. Diverticulosis without diverticulitis. Peritoneum: No abnormal intraperitoneal fluid. No free air. Ventral Wall: No hernia. Abdominal Nodes: No enlarged retroperitoneal or mesenteric lymph nodes. Vessels: Aorta and inferior vena cava are normal in size. PELVIS: Pelvic Organs: Unremarkable. Pelvic Nodes: Unremarkable. Miscellaneous: Small fat containing inguinal hernias are seen. Bones: Chronic right 9th and 10th rib fractures. Degenerative and postsurgical changes noted in lumbar spine. IMPRESSION: 1. Bilateral nonobstructive renal calculi. No hydronephrosis.. 2. Diverticulosis without diverticulitis. 3. Scoliosis. There degenerative and postsurgical changes in lumbar spine. 4. Trace pleural effusions bilaterally. 5. Left hemidiaphragm elevation and left basilar atelectasis. Dictated by: Tanvir Mejia M.D. on 06/30/2022 at 10:50 Approved by: Tanvir Mejia M.D. on 07/01/2022 at 8:15
== END ==
PROVIDERS: PCP Family Medicine; Referring Provider Physician Assistant Medical; Visit Provider Physician Assistant Medical
DX: N20.0 Calculus of kidney (principal); K57.90 Diverticulosis of intestine, part unspecified, without perforation or abscess without bleeding; M41.9 Scoliosis, unspecified; J90 Pleural effusion, not elsewhere classified; J98.11 Atelectasis
CPT/HCPCS: 74176

== ENCOUNTER → 2022-07-01 11:31 | Outpatient (CLI) | payer MEDICARE, BC, SELFPAY ==
[2022-07-01 12:48] LABS: Appearance Urine UA CLEAR; Bilirubin Urine UA NEGATIVE (NEGATIVE); Color Urine UA YELLOW; Glucose Urine UA NEGATIVE (Negative); Ketones Urine UA NEGATIVE (NEGATIVE); Leukocyte Esterase Urine UA NEGATIVE (NEGATIVE); Nitrite Urine UA NEGATIVE (Negative); Occult Blood Urine UA NEGATIVE (Negative); Protein Urine UA NEGATIVE (Negative); Specific Gravity Urine UA 1.015 (1.000-1.035); Urobilinogen Urine UA 0.2 E.U./dL (0.2)
[2022-07-01 13:07] LABS: RBC Urine 0-1/HPF (0-5/HPF); Squamous Epithelial Cell Urine 0-1 /HPF (0-5/HPF); WBC Urine None Seen (0-5/HPF)
[2022-07-01 13:08] LABS: Bacteria Urine None Seen; Culture Indicated Urine Cult Not Indicated
== END ==
PROVIDERS: PCP Family Medicine; Referring Provider Physician Assistant Medical; Visit Provider Physician Assistant Medical
DX: R10.9 Unspecified abdominal pain (principal)
CPT/HCPCS: 81001

== ENCOUNTER → 2022-11-01 07:39 | Outpatient (CLI) | payer MEDICARE, BC, SELFPAY ==
--- NOTE | 2022-11-01 | DI.MRI.S_ITS ---
PROCEDURE: MR LUMBAR SPINE WO CON INDICATIONS: LUMBAR PAIN;Multiple fractures of ribs, right side TECHNIQUE: Noncontrast sagittal T1 spin echo and T2 fast echo, sagittal STIR, and T2 fast spin echo through the lumbar spine. In cases with scoliosis, additional coronal T2 fast spin echo may be performed. COMPARISON: [facility], MR, MR LUMBAR SPINE WO CON, 09/18/2019, 8:13. [facility], MR, MR THORACIC SPINE WO CON, 11/01/2022, 7:41. FINDINGS: Image quality: There is artifact associated with the metallic hardware. Alignment and Curvature: Mild grade 1 anterolisthesis is seen at the L5-S1 level. Bone Marrow: Marrow is of normal overall signal. No acute vertebral body compression fractures. Spinal Cord: Conus medullaris terminates at the L1 level. Visualized cord demonstrates normal signal and size. Paraspinous Soft Tissues: No paravertebral masses. Postoperative changes are seen, with bilateral pedicle screws at L2, L3, L4, and L5. Vertical fixation rods are seen. Disc spacers are seen throughout the fused region. There is partial visualization of a moderate signal left renal cyst. T12-L1: Normal appearance. L1-L2: The disc height is well-preserved. Loss of disc signal is seen at this level. Mild to moderate disc bulge is seen, with a mild central/left disc protrusion. There is [id number] left-sided and mild right-sided neural foraminal narrowing. Moderate central canal narrowing is seen. The degree of central canal narrowing has progressed compared to 2020. L2-L3: Moderate generalized disc bulge is seen. Moderate facet joint hypertrophy is seen. There is [id number] left-sided and mild right-sided neural foraminal narrowing. Moderate central canal narrowing is seen. This level is improved compared to the preoperative MRI. L3-L4: At least moderate disc bulge is seen, which is eccentric to the right. There is a central/right disc protrusion. Mild to moderate facet hypertrophy is seen. There is moderate right-sided and umpo-[id number] left-sided neural foraminal narrowing. Mac VIII central this level is overall improved compared to the preoperative MRI. L4-L5: Moderate generalized disc bulge is seen. There is a mild central disc protrusion. At least moderate facet hypertrophy is seen. There is moderate right-sided and [id number] left-sided neural foraminal narrowing. Moderate central canal narrowing is seen. This level is mildly improved compared to the preoperative MRI. L5-S1: At least moderate loss of disc height and disc signal can be seen. At least moderate disc bulge is seen, which is eccentric to the right. There is a mild central disc protrusion. Moderate facet joint hypertrophy is seen. There is moderate right-sided and at least moderate left-sided neural foraminal narrowing. There is a degree of compression seen upon the exiting left L5 nerve root. Mild to moderate central canal narrowing is seen. This level appears slightly worse than on the 2020 MRI. IMPRESSION: Postoperative change can be seen L2 through L5, with improvement in the degrees of degenerative narrowing compared to the preoperative MRI. Mild interval progression of degenerative change can be seen at L1-L2 and L5-S1. Dictated by: Al Sanford M.D. on 11/01/2022 at 10:25 Approved by: Al Sanford M.D. on 11/01/2022 at 10:31
--- NOTE | 2022-11-01 | DI.MRI.S_ITS ---
PROCEDURE: MR THORACIC SPINE WO CON INDICATIONS: LUMBAR PAIN; Multiple fractures of ribs, right side TECHNIQUE: Noncontrast sagittal T1 spine echo and T2 fast spin echo, sagittal STIR, and T2 fast spin echo through the thoracic spine. COMPARISON: [facility], MR, MR LUMBAR SPINE WO CON, 11/01/2022, 7:41. [facility], CT, CT ANGIO CHEST PE PROTOCOL, 01/06/2018, 19:47. FINDINGS: Image quality: This examination is limited by involuntary motion artifact. Alignment and Curvature: Accentuated thoracic kyphosis is seen. No focal AP alignment abnormality is seen. Bone Marrow: Marrow is of normal overall signal. No acute vertebral body compression fractures. Spinal Cord: It is centered at the T7 level, there is mild prominence of the central spinal canal. Visualized spinal cord otherwise demonstrate normal in size and signal. Paraspinous Soft Tissues: No paravertebral masses. Elevation of the left hemidiaphragm is seen. Miscellaneous: Age-appropriate bony degenerative changes are seen. No significant neural foraminal narrowing can be seen. No significant central canal narrowing is seen. IMPRESSION: No significant neural foraminal or central canal narrowing can be seen. Note is made of prominence of the central canal centered at the T7 level. Is most likely benign, incidental finding. At clinical discretion, a repeat study with IV contrast could be considered for further evaluation. Additional findings: Elevation of the left hemidiaphragm Dictated by: Al Sanford M.D. on 11/01/2022 at 10:35 Approved by: Al Sanford M.D. on 11/01/2022 at 10:39
== END ==
PROVIDERS: PCP Family Medicine; Referring Provider Physical Medicine & Rehabilitation; Visit Provider Physical Medicine & Rehabilitation
DX: M47.816 Spondylosis without myelopathy or radiculopathy, lumbar region (principal); S22.41XA Multiple fractures of ribs, right side, initial encounter for closed fracture; M47.817 Spondylosis without myelopathy or radiculopathy, lumbosacral region; M48.061 Spinal stenosis, lumbar region without neurogenic claudication; M48.07 Spinal stenosis, lumbosacral region
CPT/HCPCS: 72146; 72148

== ENCOUNTER 2022-12-31 16:01 | Emergency (ER) | payer MEDICARE, BC, SELFPAY ==
[2022-12-31 16:09] VITALS: BP 191/88; PULSE 70; RESP 16; TEMP 37; O2SAT 98; BMI 36.9
[2022-12-31 16:52] LABS: Alanine Aminotransferase 35 IU/L (<50); Albumin 4.3 g/dL (3.5-5.0); Albumin Globulin Ratio 1.3 (1.0-2.8); Alkaline Phosphatase 63 U/L (38-126); Aspartate Aminotransferase 36 IU/L (17-59); BUN Creatinine Ratio 17.6 (6-22); Blood Urea Nitrogen 13 mg/dL (9-20); Calcium 9.1 mg/dL (8.4-10.2); Carbon Dioxide 29 mmol/L (22-32); Chloride 102 mmol/L (98-107); Estimated Glomerular Filt Rate > 60 mL/min (>60); Globulin 3.2 g/dL (1.7-4.1); Glucose 130 mg/dL (80-110); HEMOLYSIS < 15 (0-50); Lipase 76 U/L (23-300); Sodium 137 mmol/L (137-145); Total Protein 7.5 g/dL (6.3-8.2)
[2022-12-31 16:55] LABS: Bacteria Urine None Seen; RBC Urine 1-5/HPF (0-5/HPF); Squamous Epithelial Cell Urine 0-1 /HPF (0-5/HPF); WBC Urine None Seen (0-5/HPF)
[2022-12-31 16:56] LABS: Add Manual Diff / Slide Review NO; Basophils Absolute Auto 0 /uL (0-100); Basophils Percent Auto 0.3 % (0-2); Eosinophils Absolute Auto 0 /uL (0-450); Eosinophils Percent Auto 0.4 % (2-4); Hematocrit 41.4 % (41-53); Hemoglobin 14.2 g/dL (13.5-17.5); Lymphocytes Absolute Auto 800 /uL (1100-4500); Lymphocytes Percent Auto 9.4 % (25-40); Mean Corpuscular HGB Conc 34.3 % (30-36); Mean Corpuscular Hemoglobin 30.8 PG (26-34); Mean Corpuscular Volume 89.6 fL (80-100); Monocytes Absolute Auto 500 /uL (0-900); Monocytes Percent Auto 6.3 % (3-14); Neutrophils Absolute Auto 7100 /uL (1500-7000); Neutrophils Percent Auto 83.6 % (50-75); Platelet Count 151 X10^3/uL (150-400); Red Blood Cell Count 4.62 X10^6/uL (4.5-5.9); Red Cell Distribution Width 13.6 % (11.6-14.8); White Blood Cell Count 8.5 X10^3/uL (4.5-11.0)
--- NOTE | 2022-12-31 18:20 | ED_ITS ---
HPI - General Adult General Chief complaint: Abdominal Pain Stated complaint: abd pain/poss appendicitis Time Seen by Provider: 12/31/22 18:10 Source: patient Mode of arrival: Ambulatory History of Present Illness HPI narrative: Patient is a 77-year-old male who yesterday started to have left-sided abdominal and flank pain. He states the symptoms seem to get worse this morning. Initially he thought that maybe he had appendicitis. No fevers. Is having some nausea but no vomiting. After arrival here in the emergency department he stated that he now thinks that the discomfort he is having is very consistent with his prior history of kidney stones. He states that he has needed lithotripsy in the past and he has known stones in his kidneys but he states that on the last imaging studies which is fairly recent they were all ?small?. He states that at baseline he has problems emptying his bladder but does not feel like any of his urinary symptoms have changed. He is not had any changes in bowel habits. No skin changes. No testicular pain. Related Data Home Medications Medication Instructions Recorded Confirmed loratadine 10 mg tablet (Claritin) 10 mg PO Q DAY PRN ##0 08/28/10 09/15/17 multivitamin 1 tab PO DAILY ##0 08/28/10 09/15/17 flaxseed oil 1,000 mg capsule 1 cap PO DAILY ##0 11/13/10 09/15/17 Glucosamine Sulf-Chondroitin 1 tab PO BID ##0 11/18/15 09/15/17 ascorbic acid (vitamin C) 1,000 mg 1,000 mg PO QDAY ##0 11/18/15 09/15/17 tablet (Vitamin C) aspirin 81 mg tablet,delayed 81 mg PO QDAY #30 tabs 11/18/15 09/15/17 release Glucose: Home Monitoring Kit 0 kit DAILY 09/15/17 09/15/17 [facility] 0 dev DAILY 09/15/17 09/15/17 Previous Rx's Medication Instructions Recorded hydrochlorothiazide 25 mg tablet 25 mg PO QDAY #90 tabs 06/16/17 clopidogrel 75 mg tablet (Plavix) 75 mg PO QDAY #90 tabs 06/24/17 metformin 500 mg tablet,extended 500 - 1,000 mg (1 - 2 x 500 mg) PO 07/22/17 release 24 hr (Glucophage XR) BID #180 tabs hydrocodone 5 mg-acetaminophen 325 1 tab PO Q4-6H PRN pain #10 tabs 09/15/17 mg tablet pen needle, diabetic 31 gauge x #100 ea 10/13/1704/22 (Sure-Fine Pen [facility]) Insulin pen needles #100 ea 10/18/17 sitagliptin phosphate 100 mg 100 mg PO QDAY #90 tabs 10/28/17 tablet (Januvia) Glucose: Test Strips #100 ea 01/03/18 furosemide 20 mg tablet (Lasix) 10 mg (1/2 x 20 mg) PO DAILY #3 01/06/18 tabs insulin glargine 100 unit/mL (3 50 unit (0.5 mL) SUBCUT QDAY #9 mL 04/10/18 mL) subcutaneous pen (Lantus Solostar U-100 Insulin) finasteride 5 mg tablet 5 mg PO QDAY #90 tabs 07/10/18 metoprolol tartrate 50 mg tablet 100 mg (2 x 50 mg) PO BID #360 tabs 07/10/18 atorvastatin 40 mg tablet 40 mg PO BEDTIME #30 tabs 08/30/18 hydralazine 50 mg tablet 50 mg PO BID #180 tabs 08/30/18 nifedipine 30 mg tablet,extended 30 mg PO Q DAY #90 tabs 09/15/18 release 24 hr (Procardia XL) losartan 50 mg tablet (Cozaar) 50 mg PO Q DAY #90 tabs 10/04/18 Allergies Allergy/AdvReac Type Severity Reaction Status Date / Time tamsulosin [TAMSULOSIN] AdvReac Severe DIARRHEA Verified 01/06/18 17:28 AND NAUSEA Review of Systems Constitutional Constitutional: Reports system reviewed and no additional complaints, except as documented Cardiovascular Cardiovascular: Reports system reviewed and no additional complaints, except as documented Respiratory Respiratory: Reports system reviewed and no additional complaints, except as documented Gastrointestinal Gastrointestinal: Reports system reviewed and no additional complaints, except as documented Genitourinary Genitourinary: Reports system reviewed and no additional complaints, except as documented Integumentary/Breasts Skin/Breast: Reports system reviewed and no additional complaints, except as documented Hematologic/Lymphatic On Anticoagulants: No Patient History Medical History TIA (transient ischemic attack) (11/2015) Sleep apnea (Unknown) Osteoarthritis (Unknown) BPH (benign prostatic hyperplasia) (Unknown) Hernia (Unknown) Kidney stones (Unknown) Diabetes (Unknown) Hyperlipemia (Unknown) Hypertension (Unknown) Surgical History History of surgical removal of ganglion cyst (2004) Hx of hernia repair (~1950) Hx of lithotripsy (02/2016) History of knee replacement (12/2010) Hx of arthroscopy of left knee (Unknown) Family History Father Polio Mother No problems noted. Brother No problems noted. Social History Smoking Status: Former smoker Smoking Status: Former smoker tobacco type: cigarettes alcohol intake frequency: a few times a week Alcohol type: beer, wine and hard liquor Substance Use Type: does not use Exam Initial Vital Signs Initial Vital Signs: Vital Signs Temperature 98.6 F 12/31/22 16:09 Pulse Rate 70 12/31/22 16:09 Respiratory Rate 16 12/31/22 16:09 Blood Pressure 191/88 H 12/31/22 16:09 Pulse Oximetry 98 12/31/22 16:09 Oxygen Delivery Method Room Air 12/31/22 16:09 Const General: cooperative, comfortable and No ill appearing HENCA Head: normal to inspection and normocephalic Resp Effort & Inspection: normal respiratory effort Auscultation: clear to auscultation bilaterally Cardio Rate: regular rate Rhythm: regular rhythm GI Inspection: normal to inspection and non-distended Palpation: soft, No firm, No guarding and tender (Very mild tenderness left flank) Neuro General: patient alert, patient awake, patient oriented x3 and moves all extremities Extrem General: normal to inspection and capillary refill normal Course Orders Ordered: ED Orders 12/31/22 16:14 EKG-12 Lead Stat 12/31/22 16:26 Complete Blood Count AUTO DIFF Stat Comprehensive Metabolic Panel Stat Lipase Stat 12/31/22 16:41 Urine Microscopic Stat 12/31/22 18:46 Urine Culture Stat Ondansetron HCl (Ondansetron 4 Mg Odt) 4 mg PO NOW PRN PRN Reason: Nausea And Vomiting Ondansetron HCl (Ondansetron 4 Mg/2 Ml Inj) 4 mg IV NOW PRN PRN Reason: Nausea And Vomiting Discontinued Medications Hydrocodone Bitart/Acetaminophen (Hydrocodone/Acet 5/325 Prepack) 1 bottle MISC DIRECTED ONE Stop: 12/31/22 19:01 Ketorolac Tromethamine (Ketorolac 30 Mg/Ml Vial) 30 mg IV NOW ONE Stop: 12/31/22 18:21 Last Admin: 12/31/22 18:32 Dose: 30 mg Documented By: ES Ondansetron HCl (Ondansetron 4 Mg/2 Ml Inj) 4 mg IV NOW ONE Stop: 12/31/22 18:21 Last Admin: 12/31/22 18:32 Dose: 4 mg Documented By: ES Ondansetron HCl (Ondansetron 4 Mg Odt Prepack) 1 bottle MISC DIRECTED ONE Stop: 12/31/22 19:01 Vital Signs Vital signs: Vital Signs - 8 hr 12/31/22 16:09 Temperature 98.6 F Pulse Rate 70 Respiratory Rate 16 Blood Pressure 191/88 H Pulse Oximetry 98 Oxygen Delivery Method Room Air Medical Decision Making Lab Data Lab results reviewed: Yes I reviewed the patient's lab results. 12/31/22 16:26 12/31/22 16:26 Labs: Lab Results 12/31/22 12/31/22 Range/Units 16:26 16:41 WBC 8.5 (4.5-11.0) X10^3/uL RBC 4.62 (4.5-5.9) X10^6/uL Hgb 14.2 (13.5-17.5) g/dL Hct 41.4 (41-53) % MCV 89.6 (80-100) fL MCH 30.8 (26-34) PG MCHC 34.3 (30-36) % RDW 13.6 (11.6-14.8) % Plt Count 151 (150-400) X10^3/uL Neut % (Auto) 83.6 H (50-75) % Lymph % (Auto) 9.4 L (25-40) % [place] % (Auto) 6.3 (3-14) % Eos % (Auto) 0.4 L (2-4) % Baso % (Auto) 0.3 (0-2) % Neut # (Auto) 7100 H (6339-8182) /uL Lymph # (Auto) 800 L (6069-9092) /uL [place] # (Auto) 500 (0-900) /uL Eos # (Auto) 0 (0-450) /uL Baso # (Auto) 0 (0-100) /uL Sodium 137 (137-145) mmol/L Potassium 4.0 (3.4-5.1) mmol/L Chloride 102 (98-107) mmol/L Carbon Dioxide 29 (22-32) mmol/L BUN 13 (9-20) mg/dL Creatinine 0.74 (0.66-1.25) mg/dL Estimated GFR > 60 (>60) mL/min BUN/Creatinine Ratio 17.6 (6-22) Glucose 130 H (80-110) mg/dL Calcium 9.1 (8.4-10.2) mg/dL Total Bilirubin 1.0 (0.2-1.3) mg/dL AST 36 (17-59) IU/L ALT 35 (<50) IU/L Alkaline Phosphatase 63 (38-126) U/L Total Protein 7.5 (6.3-8.2) g/dL Albumin 4.3 (3.5-5.0) g/dL Globulin 3.2 (1.7-4.1) g/dL Albumin/Globulin Ratio 1.3 (1.0-2.8) Lipase 76 (23-300) U/L Urine RBC 1-5/hpf (0-5/HPF) Urine WBC None seen (0-5/HPF) Ur Squamous Epith Cells 0-1 /hpf (0-5/HPF) Urine Bacteria None seen (None) Urine Dip Bedside Urine Glucose Negative Bedside Urine Bilirubin - Negative Bedside Urine Ketone - Negative Urine Specific [place] 1.010 Bedside Urine Occult Blood +/- Bedside Urine pH 7.0 Bedside Urine Protein - Negative Bedside Urine Urobilinogen - Negative Bedside Urine Nitrite - Negative Bedside Urine Leukocytes - Negative Esterase Point of care testing: Urine Dip Bedside Urine Glucose Negative Bedside Urine Bilirubin - Negative Bedside Urine Ketone - Negative Urine Specific [place] 1.010 Bedside Urine Occult Blood +/- Bedside Urine pH 7.0 Bedside Urine Protein - Negative Bedside Urine Urobilinogen - Negative Bedside Urine Nitrite - Negative Bedside Urine Leukocytes - Negative Esterase ECG Data Attestation: I personally reviewed and interpreted this ECG as follows: Interpretation: Sinus rhythm Ventricular rate is 61 Left bundle-branch block No ST T wave changes MDM Narrative Medical decision making narrative: Left bundle-branch block is not new for the patient. He states that his symptoms today are now very consistent with his prior history of stones. His kidney functions unremarkable. No signs of a urinary tract infection. Discussed with him options to include CT scan although he would like to hold on that for now. He was given Toradol and his symptoms are now completely resolved. He states that Toradol has worked very well for him in the past patient is very well-appearing. No indication for admission to the hospital. Will send home with nausea medicine and pain medicine. He is very well-versed in kidney stones and nose return precautions. Expressed understanding and agreement with plan. Discharge Plan Departure Patient Disposition: Home Clinical Impression: Acute left flank pain Instructions: DI for Kidney Stones Activity Restrictions/Additional Instructions: Recommend that you continue all of your medications as directed. Use the nausea medicine in the pain medicine as needed. If your symptoms worsen or if you get worsening pain, inability to urinate, fevers then please return to the emergency department for further evaluation. Prescriptions: No Action metformin [Glucophage XR] 500 mg tablet extended release 24 hr 500 - 1,000 mg PO BID Qty: 180 3RF loratadine [Claritin] 10 MG tablet 10 mg PO Q DAY PRN Qty: 0 multivitamin Tablet 1 tab PO DAILY Qty: 0 flaxseed oil 1,000 mg Capsule 1 cap PO DAILY Qty: 0 Glucosamine Sulf-Chondroitin 1 tab PO BID Qty: 0 ascorbic acid (vitamin C) [Vitamin C] 1,000 mg Tablet 1,000 mg PO QDAY Qty: 0 aspirin 81 MG tablet,delayed release (DR/EC) 81 mg PO QDAY Qty: 30 hydrochlorothiazide 25 mg tablet 25 mg PO QDAY Qty: 90 3RF clopidogrel [Plavix] 75 mg tablet 75 mg PO QDAY Qty: 90 3RF (DME) pen needle, diabetic [Sure-Fine Pen [facility]] 31 gauge x 3/16 needle See Dose Instructions .ROUTE .MEDSUPPLY Qty: 100 4RF Dose Instruction: As directed Rx Instructions: Use to inject lantus once a day. (DME) Insulin pen needles 12.7mmx29 gauge kit Qty: 100 4RF Dose Instruction: As directed Rx Instructions: Use to inject insulin once a day. sitagliptin phosphate [Januvia] 100 mg tablet 100 mg PO QDAY Qty: 90 3RF (DME) Glucose: Test Strips 0 .Route .MEDSUPPLY Qty: 100 11RF Dose Instruction: As directed Rx Instructions: As directed Lantus Solostar U-100 Insulin 100 unit/mL (3 mL) insulin pen 50 unit SUBCUT QDAY Qty: 9 5RF metoprolol tartrate 50 mg tablet 100 mg PO BID Qty: 360 0RF Rx Instructions: Take two tablets by mouth twice a day. PT NEEDS TO EST. CARE W/NEW PCP PRIOR TO FUTURE FILLS. 07/10/18 finasteride 5 mg tablet 5 mg PO QDAY Qty: 90 0RF Rx Instructions: Take one tablet by mouth once a day. PT NEEDS TO EST.CARE W/NEW PCP PRIOR TO FUTURE FILLS. 07/10/18 hydralazine 50 mg tablet 50 mg PO BID Qty: 180 0RF Rx Instructions: Patient needs to est. care w/a new PCP prior to any future fills. 08/30/18 atorvastatin 40 mg tablet 40 mg PO BEDTIME Qty: 30 0RF Rx Instructions: Patient needs to est. care w/a new PCP prior to any future fills. 08/30/18 nifedipine [Procardia XL] 30 mg tablet extended release 24hr 30 mg PO Q DAY Qty: 90 0RF Rx Instructions: Needs appt w/PCP prior to next fill. Please call to sched. appt. 09/15/18 losartan [Cozaar] 50 mg tablet 50 mg PO Q DAY Qty: 90 0RF Rx Instructions: PATIENT NEEDS TO EST. CARE W/A NEW PCP PRIOR TO ANY FUTURE FILLS. 10/04/18 furosemide [Lasix] 20 mg tablet 10 mg PO DAILY Qty: 3 0RF Glucose: Home Monitoring Kit 0 kit DAILY [facility] 0 dev DAILY hydrocodone-acetaminophen 5-325 mg tablet 1 tab PO Q4-6H PRN (Reason: pain) Qty: 10 0RF Referrals: Samir Zuniga MD [Primary Care Provider] - Stand Alone Forms: Patient Portal/API
[2022-12-31] MEDS: ONDANSETRON 4 MG/2 ML INJ IV (18:32)
[2022-12-31] MEDS: KETOROLAC 30 MG/ML VIAL IV (18:32)
[2022-12-31 18:47] VITALS: PULSE 60; O2SAT 92
[2022-12-31 18:48] VITALS: BP 144/76; PULSE 70; O2SAT 95
[2022-12-31 19:00] VITALS: PULSE 66; O2SAT 97
[2022-12-31] MEDS: HYDROCODONE/ACET 5/325 PREPACK 1 BOTTLE MISC (19:13)
[2022-12-31] MEDS: ONDANSETRON 4 MG ODT PREPACK 1 BOTTLE MISC (19:13)
[2022-12-31 19:16] VITALS: BP 136/70; PULSE 74; RESP 14; O2SAT 94
== END 2022-12-31 19:16 | disposition home or self-care (01) ==
PROVIDERS: Emergency Medicine; Emergency Provider Emergency Medicine; PCP Family Medicine
DX: R10.9 Unspecified abdominal pain (principal); I10 Essential (primary) hypertension; I44.7 Left bundle-branch block, unspecified; Z87.891 Personal history of nicotine dependence
CPT/HCPCS: 36415; 80053; 81003; 81015; 83690; 85025; 87086; 93005; 93010; 96374; 96375; 99284; J1885; J2405

== ENCOUNTER → 2023-06-01 07:36 | Outpatient (CLI) | payer MEDICARE, BC, SELFPAY ==
[2023-06-01 08:31] LABS: Add Manual Diff / Slide Review NO; Basophils Absolute Auto 0 /uL (0-100); Basophils Percent Auto 0.8 % (0-2); Eosinophils Absolute Auto 100 /uL (0-450); Eosinophils Percent Auto 2.8 % (2-4); Hematocrit 39.7 % (41-53); Hemoglobin 13.4 g/dL (13.5-17.5); Lymphocytes Absolute Auto 1500 /uL (1100-4500); Lymphocytes Percent Auto 31.1 % (25-40); Mean Corpuscular HGB Conc 33.7 % (30-36); Mean Corpuscular Hemoglobin 30.8 PG (26-34); Mean Corpuscular Volume 91.2 fL (80-100); Monocytes Absolute Auto 500 /uL (0-900); Monocytes Percent Auto 10.6 % (3-14); Neutrophils Absolute Auto 2600 /uL (1500-7000); Neutrophils Percent Auto 54.7 % (50-75); Platelet Count 155 X10^3/uL (150-400); Red Blood Cell Count 4.35 X10^6/uL (4.5-5.9); Red Cell Distribution Width 14.1 % (11.6-14.8); White Blood Cell Count 4.8 X10^3/uL (4.5-11.0)
[2023-06-01 08:41] LABS: Hemoglobin A1C% w Est Avg Glu 6.6 % (4.0-6.0)
[2023-06-01 08:50] LABS: Alanine Aminotransferase 28 IU/L (<50); Albumin 4.3 g/dL (3.5-5.0); Albumin Globulin Ratio 1.7 (1.0-2.8); Alkaline Phosphatase 50 U/L (38-126); Aspartate Aminotransferase 24 IU/L (17-59); BUN Creatinine Ratio 33.9 (6-22); Bilirubin Total 0.7 mg/dL (0.2-1.3); Blood Urea Nitrogen 20 mg/dL (9-20); Calcium 8.9 mg/dL (8.4-10.2); Carbon Dioxide 30 mmol/L (22-32); Chloride 106 mmol/L (98-107); Cholesterol 135 mg/dL (140-199); Estimated Glomerular Filt Rate > 60 mL/min (>60); Globulin 2.5 g/dL (1.7-4.1); Glucose 94 mg/dL (80-110); HDL Cholesterol 48 mg/dL (40-60); HEMOLYSIS < 15 (0-50); LDL Cholesterol Calculated 61 mg/dL (<100); Potassium 3.7 mmol/L (3.4-5.1); Sodium 141 mmol/L (137-145); Total Protein 6.8 g/dL (6.3-8.2); Triglycerides 130 mg/dL (35-150)
[2023-06-01 10:47] LABS: Creatinine Urine Random 153.6 mg/dL
[2023-06-01 10:53] LABS: Microalbumi Creatinin Ratio Ur 32.5 ug/mg CR (<30)
== END ==
LOC: LAB 07:39
PROVIDERS: PCP Family Medicine; Referring Provider Family Medicine; Visit Provider Family Medicine
DX: E11.9 Type 2 diabetes mellitus without complications (principal); R80.9 Proteinuria, unspecified; I10 Essential (primary) hypertension; Z79.4 Long term (current) use of insulin
CPT/HCPCS: 36415; 80053; 80061; 82043; 82570; 83036; 85025

== ENCOUNTER → 2023-08-25 12:51 | Outpatient (CLI) | payer MEDICARE, BC, SELFPAY ==
--- NOTE | 2023-08-25 12:52 | DI.CT.S_ITS ---
PROCEDURE: CT KIDNEY URETER BLADDER (KUB) INDICATIONS: History of Stones and left flank pain TECHNIQUE: Axial sections were acquired from the lung bases to the pubic symphysis. Coronal and sagittal reformats were performed. For radiation dose reduction, the following was used: automated exposure control, adjustment of mA and/or kV according to patient size. COMPARISON: Located Within [facility], CT, CT KIDNEY URETER BLADDER (KUB), 06/30/2022, 8:21. FINDINGS: Image quality: Diagnostic. Evaluation of the visceral organs is limited due to the lack of intravenous contrast. Lower Chest: Elevation of the left hemidiaphragm with left lower lobe compressive atelectasis. URINARY: Right Kidney: No hydronephrosis. Approximately 4 right-sided nephroliths (6/4, 16, 17, 18), the largest of which measures 5 mm (6/17). To right-sided simple cysts. No complex cystic lesions which require follow-up. Right Ureter: No hydroureter. Left Kidney: No hydronephrosis. Left lower pole nonobstructive nephrolith measuring 10 x 7 mm (2/40) with an adjacent punctate nephrolith measuring 2 mm the a (2/41). No complex cystic lesions which require follow-up. Left Ureter: No hydroureter. Nephrolith at the left distal ureter just proximal to the UVJ measuring 4 x 5 mm (2/79, 7/45). Bladder: Normal wall thickness. No stones. ABDOMEN: Liver: No contour-deforming solid mass. Gallbladder: No radiopaque gallstones or wall thickening. Biliary ducts: No biliary dilation. Pancreas: No ductal dilation. Spleen: Size is within normal limits. Adrenal Glands: No adrenal nodules. Stomach and Bowel: No hiatal hernia. Stomach is decompressed, limiting evaluation, but appears grossly normal. Small and large bowel is normal in caliber, without obstruction. Normal appendix (2/63). Colonic diverticulosis, without diverticulitis. Peritoneum: No abnormal intraperitoneal fluid. No free air. Ventral Wall: No hernia. Mild subcutaneous soft tissue stranding in the bilateral lower anterior abdominal wall with no discrete fluid collection. Abdominal Nodes: No enlarged retroperitoneal or mesenteric lymph nodes. Vessels: Aorta and inferior vena cava are normal in size. Mild to moderate calcification of the abdominal aorta and branch vessels, without aneurysm. Aorta is tortuous. PELVIS: Pelvic Organs: Unremarkable. Pelvic Nodes: Unremarkable. Miscellaneous: No inguinal hernias are seen. Bones: No acute fractures. No aggressive appearing lytic or blastic osseous lesions. Marked multilevel degenerative changes with extensive posterior fusion hardware with bilateral transpedicular screws from L2-L5 with interbody disc spacers. Hardware is intact. IMPRESSION: Evaluation of the visceral organs is limited due to the lack of intravenous contrast. 1. No hydroureteronephrosis bilaterally. 2. Multiple bilateral nonobstructive nephroliths measuring up to 4 mm on the right and 10 x 7 mm on the left. 3. Left distal ureter nonobstructive nephrolith just proximal to the UVJ measuring 4 x 5 mm. 4. Elevation of the left hemidiaphragm which may be secondary to phrenic nerve dysfunction. 5. Colonic diverticulosis, without diverticulitis. Dictated by: Khalif Lucas M.D. on 08/25/2023 at 15:57 Approved by: Khalif Lucas M.D. on 08/25/2023 at 16:05
== END ==
PROVIDERS: PCP Family Medicine; Referring Provider Specialist; Visit Provider Specialist
DX: N20.0 Calculus of kidney (principal); N28.1 Cyst of kidney, acquired; K57.90 Diverticulosis of intestine, part unspecified, without perforation or abscess without bleeding; R10.9 Unspecified abdominal pain; I70.0 Atherosclerosis of aorta; Z87.448 Personal history of other diseases of urinary system
CPT/HCPCS: 74176

== ENCOUNTER → 2023-09-12 08:07 | Outpatient (CLI) | payer MEDICARE, BC, SELFPAY ==
--- NOTE | 2023-09-12 08:09 | DI.RAD.S_ITS ---
PROCEDURE: XR KUB INDICATIONS: Calculus of kidney TECHNIQUE: One view of the abdomen acquired. COMPARISON: [facility], CT, CT KIDNEY URETER BLADDER (KUB), 08/25/2023, 12:59. FINDINGS: Surgical changes and devices: Lumbar fusion hardware Bowel: Moderate to large fecal loading, obscuring evaluation. Soft tissues: There are small calculi seen in both kidneys. The largest measures 9 mm in the left lower region. Bones: There are degenerative changes. IMPRESSION: Small calculi again seen in both kidneys, largest measuring 9 mm in the left lower region. Dictated by: Gama Ghotra M.D. on 09/12/2023 at 12:19 Approved by: Gama Ghotra M.D. on 09/12/2023 at 12:23
[2023-09-12 10:40] LABS: Prostate Specific Antigen 0.812 ng/mL (0.10-4.00)
== END ==
PROVIDERS: PCP Family Medicine; Referring Provider Specialist; Visit Provider Specialist
DX: R97.20 Elevated prostate specific antigen [PSA] (principal); N20.0 Calculus of kidney; Z87.448 Personal history of other diseases of urinary system
CPT/HCPCS: 36415; 74018; 84153

== ENCOUNTER → 2023-12-28 08:21 | Outpatient (CLI) | payer MEDICARE, BC, SELFPAY | PROVIDERS: PCP Family Medicine; Visit Provider Urology | DX: R31.9 Hematuria, unspecified (principal); N40.1 Benign prostatic hyperplasia with lower urinary tract symptoms; N13.8 Other obstructive and reflux uropathy; N20.1 Calculus of ureter | CPT/HCPCS: 87086 ==

== ENCOUNTER → 2024-03-07 09:26 | Outpatient (CLI) | payer MEDICARE, BC, SELFPAY | PROVIDERS: PCP Family Medicine; Visit Provider Urology | DX: N40.1 Benign prostatic hyperplasia with lower urinary tract symptoms (principal); N13.8 Other obstructive and reflux uropathy | CPT/HCPCS: 87086 ==

== ENCOUNTER → 2024-03-07 14:43 | Outpatient (CLI) | payer MEDICARE, BC, SELFPAY ==
--- NOTE | 2024-03-07 14:44 | DI.CT.S_ITS ---
PROCEDURE: CT PEL WO CON INDICATIONS: 79 y/o M w/ left distal ureterolith, eval for passage. TECHNIQUE: After the administration of oral contrast, 5 mm thick sections acquired from the iliac crests to the symphysis. 5 mm coronal and sagittal reformats were then performed. For radiation dose reduction, the following was used: automated exposure control, adjustment of mA and/or kV according to patient size. COMPARISON: [facility], CT, CT KIDNEY URETER BLADDER (KUB), 08/25/2023, 12:59. FINDINGS: Image quality: Diagnostic. PELVIS: Peritoneum and Bowel: Bowel loops demonstrate normal wall thickness and caliber. No free fluid or air. Partial colectomy, surgical anastomosis in the mid abdomen. Normal appendix. Pelvic Organs: No pelvic mass. Bladder: Normal wall thickness, accounting for underdistension. No perivesicular fat stranding. Resolved left UVJ stone. No bladder stones. Submucosal fat deposition is present. Pelvic Nodes: No enlarged lymph nodes. Miscellaneous: No inguinal hernias are seen. Similar nonobstructing right-sided nephrolithiasis. Bones: No aggressive osseous abnormality. Surgical fusion of the lower lumbar spine . Degenerative disc disease. IMPRESSION: Resolved left UVJ stone. No bladder stones. Submucosal fat deposition within the bladder, suggestive chronic infection or inflammation. Dictated by: Bahman Murillo M.D. on 03/08/2024 at 14:24 Approved by: Bahman Murillo M.D. on 03/08/2024 at 14:26
== END ==
PROVIDERS: PCP Family Medicine; Referring Provider Urology; Visit Provider Urology
DX: N20.1 Calculus of ureter (principal); N40.1 Benign prostatic hyperplasia with lower urinary tract symptoms; N13.8 Other obstructive and reflux uropathy; Z98.0 Intestinal bypass and anastomosis status; Z98.1 Arthrodesis status
CPT/HCPCS: 72192; 87086

== ENCOUNTER 2024-03-12 10:03 | Day surgery (SDC) | payer MEDICARE, BC, SELFPAY ==
[2024-03-06 08:07] VITALS: BMI 36.9
[2024-03-12 10:59] VITALS: BP 147/75; RESP 68; TEMP 36.6; O2SAT 94; BMI 36.9
[2024-03-12] MEDS: LACTATED RINGERS 1,000 ML 21 ML IV (11:04)
--- NOTE | 2024-03-12 12:54 | PM.PREOP ---
Pre-operative Note COVID-19 COVID-19 status: Not tested Interval Note History & Physical reviewed/Exam performed by Physician: Yes Changes to H&P: Yes H&P completed within 30 days and has changed as indicated here:: In the interim, noted to have passed his left distal ureterolith, therefore, will only proceed with an Aquablation today.
--- NOTE | 2024-03-12 13:24 | SUR.PREOP ---
Order placed from Allison TENORIO for FLu/Covid test due to pt recent cough and antibiotics.
[2024-03-12 13:47] LABS: Influenza A - CEPHEID Flu A POSITIVE (NEGATIVE); Influenza B - CEPHEID Flu B NEGATIVE (NEGATIVE); Respiratory Syncytial Virus Negative (Negative)
[2024-03-12 13:48] LABS: COVID-19 CEPHEID 4-PLEX PCR Negative (Negative)
--- NOTE | 2024-03-12 14:10 | SUR.PREOP ---
Procedure cancelled by Allison RON due to Influenza A positive test and residual cough. VSS. Dr Zuniga notified at [facility] pt PCP per recommendation of Allison RON.
== END 2024-03-12 10:05 | disposition home or self-care (01) ==
LOC: OR 10:06 → AC 10:12
PROVIDERS: Nurse Anesthetist, Certified Registered; PCP Family Medicine; Referring Provider Urology; Visit Provider Urology
DX: Z11.52 Encounter for screening for COVID-19 (principal); Z53.09 Procedure and treatment not carried out because of other contraindication
CPT/HCPCS: 0241U; 82962; J2704; J3010

== ENCOUNTER 2024-04-28 10:33 | Emergency (ER) | payer MEDICARE, BC, SELFPAY ==
[2024-04-28] VITALS (11 sets, daily range): BP systolic 140–164; BP diastolic 67–81; PULSE 54–96; RESP 13–25; TEMP 36.6; O2SAT 93–97; BMI 36.9
--- NOTE | 2024-04-28 10:42 | EKG_ITS ---
[address] [address] Test Date: 2024-04-28 Pat Name: Keith Ramon Jr Department: Room: Gender: Male Diagnostic Assistant: WILFRID : [id number] Requested By: Order Number: [id number] Reading MD: Tad Godoy MD Measurements Intervals Diamond Rate: 73 P: 86 SC: 230 QRS: -10 QRSD: 150 T: 94 QT: 432 QTc: 475 Interpretive Statements Sinus rhythm with 1st degree AV block Left bundle branch block NO SIGNIFICANT CHANGE FROM PRIOR TRACING Electronically Signed On 04-29-2024 15:01:12 PDT by Tad Godoy MD
--- NOTE | 2024-04-28 10:42 | DI.RAD.S_ITS ---
PROCEDURE: XR CHEST 1V INDICATIONS: chest pain TECHNIQUE: One view of the chest was acquired. COMPARISON: [facility], CR, XR CHEST 2V, 01/06/2018, 18:19. FINDINGS: Surgical changes and devices: None. Lungs and pleura: Elevation of left hemidiaphragm. Left basilar atelectasis is seen. No definite focal infiltrate. No pleural effusion or pneumothorax. Mediastinum: Mediastinal contours appear normal. Heart size is enlarged. Bones and chest wall: No suspicious bony lesions. Overlying soft tissues appear unremarkable. IMPRESSION: Elevated left hemidiaphragm. Left basilar atelectasis. No definite focal infiltrate. No pleural effusion or pneumothorax. Dictated by: El Costello M.D. on 04/28/2024 at 11:39 Approved by: El Costello M.D. on 04/28/2024 at 11:41
[2024-04-28 11:11] LABS: Add Manual Diff / Slide Review NO; Basophils Absolute Auto 0 /uL (0-100); Basophils Percent Auto 0.4 % (0-2); Eosinophils Absolute Auto 100 /uL (0-450); Eosinophils Percent Auto 1.3 % (2-4); Hematocrit 38.8 % (41-53); Hemoglobin 13.3 g/dL (13.5-17.5); Lymphocytes Absolute Auto 1000 /uL (1100-4500); Mean Corpuscular HGB Conc 34.2 % (30-36); Mean Corpuscular Hemoglobin 31.4 PG (26-34); Monocytes Absolute Auto 500 /uL (0-900); Monocytes Percent Auto 8.3 % (3-14); Neutrophils Absolute Auto 4200 /uL (1500-7000); Platelet Count 152 X10^3/uL (150-400); Red Blood Cell Count 4.22 X10^6/uL (4.5-5.9); Red Cell Distribution Width 13.7 % (11.6-14.8); White Blood Cell Count 5.8 X10^3/uL (4.5-11.0)
[2024-04-28 11:21] LABS: INR 1.1 (0.9-1.3); Prothrombin Time 12.1 SECONDS (9.4-12.5)
--- NOTE | 2024-04-28 11:21 | ED.CHESTPAIN ---
HPI - Chest Pain General Chief Complaint: Chest Pain Stated Complaint: Chest px, little nausea, heartburn, jaw px Time Seen by Provider: 04/28/24 10:50 Source: patient and family Mode of arrival: EMS History of Present Illness HPI narrative: 79-year-old male with no known history of coronary artery disease, does have cardiac risk factors of diabetes and hyperlipidemia and hypertension, had cardiac catheterization he believes 5 years ago, no other treadmill or provocative testing recalled, had chest discomfort last night, was able to sleep, awoke this morning without chest discomfort but certainly while having his breakfast had substernal chest discomfort, some slight radiation to his right jaw. Some nausea without diaphoresis. No emesis. No change with inspiration or movements. No recent cough fevers or chills. No recent change in activities or trauma. He does not take blood thinner medications. No change in his chronic medications recalled. He is followed by local ceiling installer Dr. Costello. Related Data Home Medications Medication Instructions Recorded Confirmed loratadine 10 mg tablet (Claritin) 10 mg PO Q DAY PRN ##0 08/28/10 03/12/24 multivitamin 1 tab PO DAILY ##0 08/28/10 03/12/24 flaxseed oil 1,000 mg capsule 1 cap PO DAILY ##0 11/13/10 03/12/24 Glucosamine Sulf-Chondroitin 1 tab PO BID ##0 11/18/15 12/28/23 ascorbic acid (vitamin C) 1,000 mg 1,000 mg PO QDAY ##0 11/18/15 03/12/24 tablet (Vitamin C) aspirin 81 mg tablet,delayed 81 mg PO QDAY #30 tabs 11/18/15 03/12/24 release Glucose: Home Monitoring Kit 0 kit DAILY 09/15/17 12/28/23 [place] 0 dev DAILY 09/15/17 03/12/24 eplerenone 25 mg tablet 25 mg PO DAILY 09/29/23 03/12/24 terazosin 5 mg capsule 5 mg PO DAILY 09/29/23 03/12/24 Previous Rx's Medication Instructions Recorded metformin 500 mg tablet,extended 500 - 1,000 mg (1 - 2 x 500 mg) PO 07/22/17 release 24 hr (Glucophage XR) BID #180 tabs pen needle, diabetic 31 gauge x #100 ea 10/13/1704/22 (Sure-Fine Pen [place]) Insulin pen needles #100 ea 10/18/17 sitagliptin phosphate 100 mg 100 mg PO QDAY #90 tabs 10/28/17 tablet (Januvia) Glucose: Test Strips #100 ea 01/03/18 insulin glargine 100 unit/mL (3 50 unit (0.5 mL) SUBCUT QDAY #9 mL 04/10/18 mL) subcutaneous pen (Lantus Solostar U-100 Insulin) finasteride 5 mg tablet 5 mg PO QDAY #90 tabs 07/10/18 metoprolol tartrate 50 mg tablet 100 mg (2 x 50 mg) PO BID #360 tabs 07/10/18 atorvastatin 40 mg tablet 40 mg PO BEDTIME #30 tabs 08/30/18 nifedipine 30 mg tablet,extended 30 mg PO Q DAY #90 tabs 09/15/18 release 24 hr (Procardia XL) tolterodine 2 mg tablet 2 mg PO BID #120 tabs 03/14/24 Allergies Allergy/AdvReac Type Severity Reaction Status Date / Time spironolactone Allergy Severe breast Verified 03/12/24 10:46 lumps morphine AdvReac Severe Hallucinati Verified 03/12/24 10:46 ng tamsulosin [TAMSULOSIN] AdvReac Severe DIARRHEA Verified 03/12/24 10:46 AND NAUSEA Patient History Medical History Ascending aorta dilatation Left ventricular hypertrophy Chronic diastolic (congestive) heart failure Left bundle branch block History of bladder stone Nephrolithiasis History of nephrolithiasis BPH w urinary obs/LUTS TIA (transient ischemic attack) (11/2015) Sleep apnea (Unknown) Osteoarthritis (Unknown) BPH (benign prostatic hyperplasia) (Unknown) Hernia (Unknown) Kidney stones (Unknown) Diabetes (Unknown) Hyperlipemia (Unknown) Hypertension (Unknown) Surgical History H/O spinal fusion Hx of cardiac cath (04/25/18) History of surgical removal of ganglion cyst (2004) Hx of hernia repair (~1950) Hx of lithotripsy (02/2016) History of knee replacement (12/2010) Hx of arthroscopy of left knee (Unknown) Family History Father Polio Mother No problems noted. Brother No problems noted. Social History household members: significant other Smoking Status: Former smoker alcohol intake: current Smoking Status: Former smoker tobacco type: cigarettes alcohol intake frequency: a few times a week Alcohol type: beer, wine and hard liquor Exam Narrative Exam Narrative: GENERAL: Well-developed patient, in mild distress. HEAD: Atraumatic. Normocephalic. EYES: Pupils equal round and reactive. Extraocular motions intact. No scleral icterus. No injection or drainage. ENT: Nose without bleeding, purulent drainage. Throat without erythema, tonsillar hypertrophy or exudate. Airway patent. NECK: Trachea midline. Non tender CARDIOVASCULAR: Regular rate and rhythm without murmurs, gallops, or rubs. RESPIRATORY: Clear to auscultation. Breath sounds equal bilaterally. No wheezes, rales, or rhonchi. GASTROINTESTINAL: Abdomen soft, non-tender, nondistended. EXTREMITIES: No edema or joint tenderness. BACK: Nontender without deformity or crepitance. No flank tenderness. NEURO: AOx3. Motor functions grossly nonfocal SKIN: No rash or erythema of visible areas Initial Vital Signs Initial Vital Signs: Vital Signs Pulse Rate 81 04/28/24 10:39 Course Orders Ordered: ED Orders 04/28/24 13:15 Trop I [Troponin I] Stat Discontinued Medications Al Hydrox/Mg Hydrox/Simethicone (Mag Hydrox/Alum/Simeth 30 Ml Udc) 30 ml PO NOW ONE Stop: 04/28/24 11:42 Last Admin: 04/28/24 11:51 Dose: 30 ml Documented By: Aspirin (Aspirin 81 Mg Chew Tab) 324 mg PO NOW ONE Stop: 04/28/24 10:43 Last Admin: 04/28/24 10:43 Dose: Not Given Documented By: RLS Vital Signs Vital signs: Vital Signs - 8 hr 04/28/24 13:30 04/28/24 13:30 04/28/24 14:00 Pulse Rate 65 56 L Respiratory Rate 19 17 Blood Pressure 143/69 H Pulse Oximetry 97 95 04/28/24 14:00 04/28/24 14:30 04/28/24 14:30 Pulse Rate 54 L Respiratory Rate 16 Blood Pressure 140/70 141/67 H Pulse Oximetry 95 MDM - Chest Pain Lab Data Attestation: I reviewed the patient's lab results. Lab results narrative: White blood cell count 5800, hemoglobin 13.3, platelets adequate. Glucose 132. BUN 14 with creatinine 0.67 normal renal function. Electrolytes unremarkable, serum CO2 normal. Liver functions and lipase normal. Troponin negative/unmeasurable. BNP 107 normal. 04/28/24 10:50 04/28/24 10:50 Labs: Lab Results 04/28/24 04/28/24 Range/Units 10:50 13:15 WBC 5.8 (4.5-11.0) X10^3/uL RBC 4.22 L (4.5-5.9) X10^6/uL Hgb 13.3 L (13.5-17.5) g/dL Hct 38.8 L (41-53) % MCV 92.0 (80-100) fL MCH 31.4 (26-34) PG MCHC 34.2 (30-36) % RDW 13.7 (11.6-14.8) % Plt Count 152 (150-400) X10^3/uL Neut % (Auto) 72.0 (50-75) % Lymph % (Auto) 18.0 L (25-40) % [place] % (Auto) 8.3 (3-14) % Eos % (Auto) 1.3 L (2-4) % Baso % (Auto) 0.4 (0-2) % Neut # (Auto) 4200 (1305-1446) /uL Lymph # (Auto) 1000 L (8908-3654) /uL [place] # (Auto) 500 (0-900) /uL Eos # (Auto) 100 (0-450) /uL Baso # (Auto) 0 (0-100) /uL PT 12.1 (9.4-12.5) SECONDS INR 1.1 (0.9-1.3) APTT 34 (25.1-36.5) SECONDS Sodium 140 (137-145) mmol/L Potassium 4.2 (3.4-5.1) mmol/L Chloride 104 (98-107) mmol/L Carbon Dioxide 30 (22-32) mmol/L BUN 14 (9-20) mg/dL Creatinine 0.67 (0.66-1.25) mg/dL Estimated GFR > 60 (>60) mL/min BUN/Creatinine Ratio 20.9 (6-22) Glucose 132 H (80-110) mg/dL Calcium 9.6 (8.4-10.2) mg/dL Magnesium 1.8 (1.6-2.3) mg/dL Total Bilirubin 0.8 (0.2-1.3) mg/dL AST 29 (17-59) IU/L ALT 28 (<50) IU/L Alkaline Phosphatase 54 (38-126) U/L Total Creatine Kinase 169 (55-170) U/L Troponin I < 0.012 < 0.012 (0.01-0.034) ng/mL NT-Pro-B Natriuret Pep 107 (<450) pg/mL Total Protein 7.2 (6.3-8.2) g/dL Albumin 4.3 (3.5-5.0) g/dL Globulin 2.9 (1.7-4.1) g/dL Albumin/Globulin Ratio 1.5 (1.0-2.8) Lipase 72 (23-300) U/L Imaging Data Chest x-ray: Radiologist's Impression: [place] [address] XRay Report Signed Patient: Keith Ramon Jr MR#: [id number] : 1945 Acct:[id number] Age/Sex: 79 / M Date of Service: 04/28/24 Loc: ED Accession Number: [id number] Procedure: XR chest 1V Ordering Provider: Donavan Andrew MD PROCEDURE: XR CHEST 1V INDICATIONS: chest pain TECHNIQUE: One view of the chest was acquired. COMPARISON: [facility], CR, XR CHEST 2V, 01/06/2018, 18:19. FINDINGS: Surgical changes and devices: None. Lungs and pleura: Elevation of left hemidiaphragm. Left basilar atelectasis is seen. No definite focal infiltrate. No pleural effusion or pneumothorax. Mediastinum: Mediastinal contours appear normal. Heart size is enlarged. Bones and chest wall: No suspicious bony lesions. Overlying soft tissues appear unremarkable. IMPRESSION: Elevated left hemidiaphragm. Left basilar atelectasis. No definite focal infiltrate. No pleural effusion or pneumothorax. Dictated by: El Costello M.D. on 04/28/2024 at 11:39 Approved by: El Costello M.D. on 04/28/2024 at 11:41 ECG Data Attestation: I personally reviewed and interpreted this ECG as follows: Interpretation: Normal sinus rhythm with first-degree AV block, ventricular rate 73, no obvious ST segment elevation or depression changes. Left bundle branch block known to patient. NC 230, QRS 150, QTC 475. MDM Narrative Medical decision making narrative: 79-year-old male with no known CAD but multiple cardiac risk factors diabetes and hyperlipidemia and hypertension, had sternal chest discomfort last night, slept, this morning had no pain but shortly end of breakfast started having similar discomfort, with some radiation to the right jaw, no diaphoresis, some nausea without emesis. Screening EKG showed left bundle branch block, he is aware of having a left bundle branch block. Initial troponin negative. We will hold for interval repeat troponin. Interval repeat troponin also negative. We will consult Cardiology for disposition planning and medication changes. Case discussed with cardiology Dr. Mcmillan, who advises increased dose of the patient's nifedipine from once daily to twice daily. Keep other medication regimens the same. Follow up with his ceiling installer advised early next week. Return precautions over the weekend. Discharged home with family. Discharge Plan Departure Patient Disposition: Home Clinical Impression: Chest pain Activity Restrictions/Additional Instructions: Chest pain last night and earlier today with some radiation to the jaw, history of hyperlipidemia and diabetes and hypertension, but known known previous coronary interventions. EKG showed left bundle branch block, which he reported as a known finding. Serial blood tests not suggestive of heart attack. Case was discussed with on-call Cardiology Dr. Mcmillan at [facility], who is in the same group with your regular ceiling installer Dr. Costello, who suggested increased dose of nifedipine from 1 tablet a day to twice daily for now. She advised you call Dr. Pulliam office on Tuesday for close follow up. Continue your other chronic medications the same for now. Return to this/nearest emergency department for any change worsening symptoms or any concerns prior. Prescriptions: No Action metformin [Glucophage XR] 500 mg tablet extended release 24 hr 500 - 1,000 mg PO BID Qty: 180 3RF Rx Instructions: 500 mg this morning loratadine [Claritin] 10 MG tablet 10 mg PO Q DAY PRN Qty: 0 multivitamin Tablet 1 tab PO DAILY Qty: 0 flaxseed oil 1,000 mg Capsule 1 cap PO DAILY Qty: 0 Glucosamine Sulf-Chondroitin 1 tab PO BID Qty: 0 ascorbic acid (vitamin C) [Vitamin C] 1,000 mg Tablet 1,000 mg PO QDAY Qty: 0 aspirin 81 MG tablet,delayed release (DR/EC) 81 mg PO QDAY Qty: 30 (DME) pen needle, diabetic [Sure-Fine Pen [place]] 31 gauge x 3/16 needle See Dose Instructions .ROUTE .MEDSUPPLY Qty: 100 4RF Dose Instruction: As directed Rx Instructions: Use to inject lantus once a day. (DME) Insulin pen needles 12.7mmx29 gauge kit Qty: 100 4RF Dose Instruction: As directed Rx Instructions: Use to inject insulin once a day. sitagliptin phosphate [Januvia] 100 mg tablet 100 mg PO QDAY Qty: 90 3RF (DME) Glucose: Test Strips 0 .Route .MEDSUPPLY Qty: 100 11RF Dose Instruction: As directed Rx Instructions: As directed Lantus Solostar U-100 Insulin 100 unit/mL (3 mL) insulin pen 50 unit SUBCUT QDAY Qty: 9 5RF metoprolol tartrate 50 mg tablet 100 mg PO BID Qty: 360 0RF Rx Instructions: Take two tablets by mouth twice a day. PT NEEDS TO EST. CARE W/NEW PCP PRIOR TO FUTURE FILLS. 07/10/18 finasteride 5 mg tablet 5 mg PO QDAY Qty: 90 0RF Rx Instructions: Take one tablet by mouth once a day. PT NEEDS TO EST.CARE W/NEW PCP PRIOR TO FUTURE FILLS. 07/10/18 atorvastatin 40 mg tablet 40 mg PO BEDTIME Qty: 30 0RF Rx Instructions: Patient needs to est. care w/a new PCP prior to any future fills. 08/30/18 nifedipine [Procardia XL] 30 mg tablet extended release 24hr 30 mg PO Q DAY Qty: 90 0RF Rx Instructions: Needs appt w/PCP prior to next fill. Please call to sched. appt. 09/15/18 tolterodine 2 mg tablet 2 mg PO BID Qty: 120 0RF Glucose: Home Monitoring Kit 0 kit DAILY [place] 0 dev DAILY terazosin 5 mg capsule 5 mg PO DAILY eplerenone 25 mg tablet 25 mg PO DAILY Referrals: Samir Zuniga MD [Primary Care Provider] - Stand Alone Forms: Patient Portal/API/Survey
[2024-04-28 11:24] LABS: PTT Partial Thromboplastin Tim 34 SECONDS (25.1-36.5)
[2024-04-28 11:34] LABS: Alanine Aminotransferase 28 IU/L (<50); Albumin 4.3 g/dL (3.5-5.0); Albumin Globulin Ratio 1.5 (1.0-2.8); Alkaline Phosphatase 54 U/L (38-126); Aspartate Aminotransferase 29 IU/L (17-59); BUN Creatinine Ratio 20.9 (6-22); Bilirubin Total 0.8 mg/dL (0.2-1.3); Blood Urea Nitrogen 14 mg/dL (9-20); Calcium 9.6 mg/dL (8.4-10.2); Carbon Dioxide 30 mmol/L (22-32); Chloride 104 mmol/L (98-107); Creatine Kinase 169 U/L (55-170); Estimated Glomerular Filt Rate > 60 mL/min (>60); Globulin 2.9 g/dL (1.7-4.1); Glucose 132 mg/dL (80-110); HEMOLYSIS < 15 (0-50); Lipase 72 U/L (23-300); Magnesium 1.8 mg/dL (1.6-2.3); Potassium 4.2 mmol/L (3.4-5.1); Sodium 140 mmol/L (137-145); Total Protein 7.2 g/dL (6.3-8.2)
[2024-04-28 11:46] LABS: NT-proBNP (BNP-Adult 18+) 107 pg/mL (<450); Troponin I < 0.012 ng/mL (0.01-0.034)
[2024-04-28] MEDS: MAG HYDROX/ALUM/SIMETH 30 ML UDC PO (11:51)
[2024-04-28 13:57] LABS: Troponin I < 0.012 ng/mL (0.01-0.034)
== END 2024-04-28 14:59 | disposition home or self-care (01) ==
PROVIDERS: Emergency Provider Emergency Medicine; PCP Family Medicine
DX: R07.9 Chest pain, unspecified (principal); R68.84 Jaw pain; I10 Essential (primary) hypertension; E78.5 Hyperlipidemia, unspecified; I44.7 Left bundle-branch block, unspecified; Z87.891 Personal history of nicotine dependence
CPT/HCPCS: 36415; 71045; 80053; 82550; 83690; 83735; 83880; 84484; 85025; 85610; 85730; 93005; 93010; 99284

== ENCOUNTER → 2024-06-01 07:41 | Outpatient (CLI) | payer MEDICARE, BC, SELFPAY ==
[2024-06-01 08:11] LABS: Hemoglobin A1C% w Est Avg Glu 5.6 % (4.0-6.0)
[2024-06-01 08:16] LABS: Cholesterol 150 mg/dL (140-199); HDL Cholesterol 55 mg/dL (40-60); LDL Cholesterol Calculated 65 mg/dL (<100); Triglycerides 152 mg/dL (35-150)
[2024-06-01 08:55] LABS: Creatinine Urine Random 128.18 mg/dL
[2024-06-01 08:59] LABS: Microalbumin Urine Random 2.5 mg/dL (0-1.6)
== END ==
PROVIDERS: PCP Family Medicine; Referring Provider Family Medicine; Visit Provider Family Medicine
DX: E11.9 Type 2 diabetes mellitus without complications (principal); E78.00 Pure hypercholesterolemia, unspecified; Z79.4 Long term (current) use of insulin
CPT/HCPCS: 36415; 80061; 82043; 82570; 83036

== ENCOUNTER → 2024-08-08 09:28 | Outpatient (CLI) | payer MEDICARE, BC, SELFPAY | PROVIDERS: PCP Family Medicine; Visit Provider Urology | DX: R39.9 Unspecified symptoms and signs involving the genitourinary system (principal) | CPT/HCPCS: 87086 ==

== ENCOUNTER 2024-08-14 07:59 | Day surgery (SDC) | payer MEDICARE, BC, SELFPAY ==
[2024-08-08 10:15] VITALS: BMI 36.6
[2024-08-14] VITALS (9 sets, daily range): BP systolic 116–142; BP diastolic 56–76; PULSE 52–60; RESP 14–21; TEMP 36.1–36.8; O2SAT 90–96; BMI 35.9
--- NOTE | 2024-08-14 | PATH_ITS ---
[facility] Accession Number: [id number] No. of containers..01 Tissue . 01 Material submitted: . prostate - PROSTATE CHIPS . 01 Diagnosis: PROSTATE CHIPS (WEIGHT 5 GRAMS): Benign prostatic tissue with stromal and glandular hyperplasia; negative for malignancy. [facility] 08/16/2024 1523 Local . 01 Electronically signed: . Christelle Foster MD, Pathologist NPI- [id number] . 01 Gross description: . Received in formalin with two identifiers and prostate chips, are multiple hastings soft tissue fragments admixed with a moderate amount of hemorrhagic material weighing 5 grams and aggregating to 5.0 x 4.1 x 1.5 cm. Submitted entirely in A1-A5. ([id number]) /MRV 08/15/2024 1309 Local . 01 Pathologist provided ICD-10: N40.1 . 01 CPT . 321031 Specimen Comment: A courtesy copy of this report has been sent to [facility] Pathology Performed at: [address] [address], [place], [place] [id number] MD Maximiliano Zamora MD Phone: [phone]
[2024-08-14] MEDS: LACTATED RINGERS 1,000 ML 21 ML IV ×2 (08:49→10:28)
--- NOTE | 2024-08-14 09:15 | PM.PREOP ---
Pre-operative Note COVID-19 COVID-19 status: Not tested Interval Note History & Physical reviewed/Exam performed by Physician: Yes Changes to H&P: No
[2024-08-14] MEDS: levoFLOXacin 500 MG/100 ML PIGGYBACK 100 MG IV (09:47)
--- NOTE | 2024-08-14 09:55 | SUR.OPER ---
Lithotomy on padded OR bed, head on pillow, arms secured on padded arm boards at <90 degrees abduction. Legs secured in padded yellow fins stirrups.
--- NOTE | 2024-08-14 10:43 | PM.OP.1 ---
Operative Date/Time/Diagnoses Date of procedure: 08/14/24 Time of procedure: 09:45 Pre-op diagnosis: Benign prostatic hyperplasia with lower urinary tract symptoms Post-op diagnosis: same Procedure & Clinicians Procedure: Cystoscopy Aquablation Same procedure(s) as scheduled: Yes Indications: 79 y/o M noted to have BPH w/ bothersome LUTS despite treatment with Terazosin 5mg and Finasteride 5mg daily. Discussed that his cystoscopy was notable for coaptating lateral prostatic lobes and a healthy appearing bladder without an intravesical median lobe. His TRUS prostate volume was notable for 29g. Discussed that he otherwise is a good candidate for Aquablation or a TURP. Discussed risks of the procedure to include pain, bleeding, infection, injury to urethra/bladder/either ureteral orifice, clot retention, irritative voiding symptoms for several months following the procedure, urinary incontinence, erectile dysfunction, need for open emergent repair of any bladder or ureteral injuries, urethral stricture or bladder neck contracture development, need for repeat procedures. Surgeon: Ag Copeland Click Yes if Unassisted: Yes Anesthesia Type: General Operative Notes Findings: Coaptating lateral prostatic lobes, no intravesical median lobe Closure Type: not applicable Specimen(s): other (prostate chips) Applied: catheter Estimated Blood Loss (mL): 20 Blood products transfused: none Procedure in detail: After informed consent was obtained, the patient was identified brought to the operating room where he was placed in his supine position on the table.? Once there anesthesia was induced and maintained.? Ensuring an adequate level of anesthesia the patient was transitioned to the lithotomy position where after time-out he was prepped.? After prepping, ensuring an adequate level of anesthesia, administration IV antibiotics and time-out 60 cc of ultrasound gel was instilled within the rectum and the ultrasound probe which had been attached to the TRUS stepper which was attached to the TRUS stepper articulating arm which was secured to the bed was advanced into the rectum under direct vision via the ultrasound.? The ultrasound probe was then aligned and confirmation made that the prostate was centered and aligned in both the sagittal and transverse views.? The bladder neck, verumontanum, central and transitional zones were identified.? With the ultrasound in place and adjusted the patient was then draped in a sterile fashion. With the patient draped the 24 [place] aqua beam handpiece was then inserted through the urethra and advanced into the bladder.? Cystoscopy was then performed and no concerning bladder mass or lesions were noted.? Bilateral ureteral orifices were noted to be orthotopic in nature.? As the cystoscope was advanced the level of the sphincter, verumontanum, bladder neck were all identified via ultrasound and under direct vision.? The aqua beam hand place was then secured to the handpiece articulating arm which had been secured to the bed.? The Aquablation handpiece and TRUS probe were confirmed to be parallel and colinear.? Confirmation was then made that the aqua beam handpiece and nozzle was centered and anterior to the bladder neck.? The cystoscope was then retracted under direct vision in the sphincter and verumontanum were identified.? The tip of the cystoscope was then placed proximal to the external sphincter.? Compression was applied with the TRUS probe to the prostate.? The alignment of the TRUS probe and aqua beam handpiece was once again confirmed.? Horizontal alignment of the handpiece water jet was then performed.? With these adjustments made, the treatment zones were then planned using real-time ultrasound.? In the largest transverse view of the prostate the depth and radial angles were determined and set again in the transverse view of the prostate.? In the longitudinal and sagittal view the Aquablation nozzle was identified and its position registered with the software and robot.? The treatment contours were then determined and adjusted to reflect the intended margins of resection.? Following our plan confirmation, the Aquablation resection treatment was started.? A 2nd pass was then completed in similar fashion after the 1st pass had been completed.? At this point, the Aqua hand piece was removed from the urethra. The 26Fr resectoscope was then inserted into the urethra and cystoscopy was repeated.? The [place] wooden barrel mechanic was utilized to evacuate the blood clots from the bladder.? The bladder neck was then resected using the bipolar Gyrus loop.? Bilateral ureteral orifices were again identified and noted to be intact at case end.? Hemostasis was obtained and noted to be excellent at case end.? The resectoscope was then removed and a 24Fr Michael 3-way hematuria catheter was inserted through the urethra and into the bladder.? 45cc of sterile water was utilized for balloon insufflation.? Efflux was noted to be clear at case end.? Anesthesia was reversed, he was extubated in the OR and transferred to the PACU in stable condition for recovery. Complications: none Post-operative Condition: stable Disposition: PACU Plan for aftercare: Will continue to run CBI for a few hours to evaluate the efflux from his catheter.? Should it remain relatively clear and with minimal blood clots, will discharge home with catheter in place and have him return to Urology clinic in 2 days for a voiding trial.? Should his efflux remain red or have significant clot burden, will admit overnight for observation and continued CBI.
[2024-08-14] MEDS: ONDANSETRON 4 MG/2 ML INJ IV (11:28)
== END 2024-08-14 14:30 | disposition home or self-care (01) ==
LOC: OR 08:01 → AC 08:02
PROVIDERS: PCP Family Medicine; Referring Provider Urology; Visit Provider Urology
PROC: 0VT08ZZ Resection of Prostate, Via Natural or Artificial Opening Endoscopic (ICD-10-PCS; CPT 0421T; principal; 2024-08-14 09:45)
DX: N40.1 Benign prostatic hyperplasia with lower urinary tract symptoms (principal); R39.12 Poor urinary stream; R33.9 Retention of urine, unspecified; R35.0 Frequency of micturition; R39.15 Urgency of urination; R35.1 Nocturia; E11.9 Type 2 diabetes mellitus without complications; I11.0 Hypertensive heart disease with heart failure; I50.9 Heart failure, unspecified; E78.5 Hyperlipidemia, unspecified; Z79.4 Long term (current) use of insulin; Z79.84 Long term (current) use of oral hypoglycemic drugs; Z86.73 Personal history of transient ischemic attack (TIA), and cerebral infarction without residual deficits
CPT/HCPCS: 0421T; 82962; C2596; J1100; J1956; J2405; J2704; J3010

== ENCOUNTER → 2024-08-16 14:40 | Outpatient (CLI) | payer MEDICARE, BC, SELFPAY | PROVIDERS: PCP Family Medicine; Visit Provider Urology | DX: N40.1 Benign prostatic hyperplasia with lower urinary tract symptoms (principal); N13.8 Other obstructive and reflux uropathy | CPT/HCPCS: 51798; 81002; 87086; 99213 ==

== ENCOUNTER 2024-08-17 19:04 | Emergency (ER) | payer MEDICARE, BC, SELFPAY ==
[2024-08-17 19:06] VITALS: BP 177/86; PULSE 74; RESP 16; TEMP 36.6; O2SAT 97; BMI 36.3
--- NOTE | 2024-08-17 20:31 | ED.MALEGU ---
HPI - Male Genitourinary General Chief complaint: Urogenital-Male Stated complaint: states catheter is plugged up Time Seen by Provider: 08/17/24 19:08 Source: patient Mode of arrival: Family Vehicle History of Present Illness HPI Narrative: 79-year-old gentleman status post ablation this past Tuesday with Nicole catheter placed and then removed and seen on where he was difficulty having urinating seen this morning by urology and catheter placed again. Patient feels his bladder is full and is unable to empty at this time. Other than what is stated 14 pt ROS is negative. Related Data Home Medications ?Medication ?Instructions ?Recorded ?Confirmed loratadine 10 mg tablet (Claritin) 10 mg PO Q DAY PRN ##0 08/28/10 08/16/24 multivitamin 1 tab PO DAILY ##0 08/28/10 08/16/24 flaxseed oil 1,000 mg capsule 1 cap PO DAILY ##0 11/13/10 08/16/24 Glucosamine Sulf-Chondroitin 1 tab PO BID ##0 11/18/15 08/16/24 ascorbic acid (vitamin C) 1,000 mg 1,000 mg PO QDAY ##0 11/18/15 08/16/24 tablet (Vitamin C) aspirin 81 mg tablet,delayed 81 mg PO QDAY #30 tabs 11/18/15 08/16/24 release Glucose: Home Monitoring Kit 0 kit DAILY 09/15/17 08/16/24 [place] 0 dev DAILY 09/15/17 08/16/24 eplerenone 25 mg tablet 25 mg PO DAILY 09/29/23 08/16/24 terazosin 5 mg capsule 5 mg PO DAILY 09/29/23 08/16/24 insulin glargine 100 unit/mL (3 50 unit SUBCUT QPM 08/08/24 08/16/24 mL) subcutaneous pen (Lantus Solostar U-100 Insulin) sacubitril 24 mg-valsartan 26 mg 1 tab PO BID 08/08/24 08/16/24 tablet (Entresto) torsemide 40 mg tablet 40 mg PO DAILY 08/08/24 08/16/24 metformin 500 mg tablet,extended 1,500 mg PO BID 08/14/24 08/16/24 release 24 hr Previous Rx's ?Medication ?Instructions ?Recorded pen needle, diabetic 31 gauge x #100 ea 10/13/17/ (Sure-Fine Pen [place]) Insulin pen needles #100 ea 10/18/17 sitagliptin phosphate 100 mg 100 mg PO QDAY #90 tabs 10/28/17 tablet (Januvia) Glucose: Test Strips #100 ea 01/03/18 finasteride 5 mg tablet 5 mg PO QDAY #90 tabs 07/10/18 metoprolol tartrate 50 mg tablet 100 mg (2 x 50 mg) PO BID #360 tabs 07/10/18 atorvastatin 40 mg tablet 40 mg PO BEDTIME #30 tabs 08/30/18 nifedipine 30 mg tablet,extended 30 mg PO Q DAY #90 tabs 09/15/18 release 24 hr (Procardia XL) tolterodine 2 mg tablet 2 mg PO BID #180 tabs 07/25/24 Allergies Allergy/AdvReac Type Severity Reaction Status Date / Time spironolactone Allergy Severe breast Verified 08/17/24 19:14 lumps morphine AdvReac Severe Hallucinati Verified 08/17/24 19:14 ng tamsulosin (TAMSULOSIN) AdvReac Severe DIARRHEA Verified 08/17/24 19:14 AND NAUSEA Review of Systems Review of Systems ROS Unobtainable: All systems reviewed & are unremarkable except as noted in HPI and below Patient History Medical History Ascending aorta dilatation Left ventricular hypertrophy Chronic diastolic (congestive) heart failure Left bundle branch block History of bladder stone Nephrolithiasis History of nephrolithiasis BPH w urinary obs/LUTS TIA (transient ischemic attack) (11/2015) Sleep apnea (Unknown) Osteoarthritis (Unknown) BPH (benign prostatic hyperplasia) (Unknown) Hernia (Unknown) Kidney stones (Unknown) Diabetes (Unknown) Hyperlipemia (Unknown) Hypertension (Unknown) Surgical History H/O spinal fusion Hx of cardiac cath (04/25/18) History of surgical removal of ganglion cyst (2004) Hx of hernia repair (~1950) Hx of lithotripsy (02/2016) History of knee replacement (12/2010) Hx of arthroscopy of left knee (Unknown) Family History Father Polio Mother No problems noted. Brother No problems noted. Social History household members: significant other alcohol intake: current tobacco type: cigarettes alcohol intake frequency: a few times a week Alcohol type: beer, wine and hard liquor Exam Narrative Exam Narrative: GENERAL: [79] year old patient appears stated age. Well-developed patient, in mild distress. HEAD: Atraumatic. Normocephalic. EYES: Pupils equal round and reactive. Extraocular motions intact. No scleral icterus. No injection or drainage. EXTREMITIES: No edema or joint tenderness. BACK: Nontender without deformity or crepitance. No flank tenderness. NEURO: AOx3. SKIN: No rash or erythema of visible areas Initial Vital Signs Initial Vital Signs: Vital Signs Temperature 97.9 F 08/17/24 19:06 Pulse Rate 74 08/17/24 19:06 Respiratory Rate 16 08/17/24 19:06 Blood Pressure 177/86 H 08/17/24 19:06 Pulse Oximetry 97 08/17/24 19:06 Oxygen Delivery Method Room Air 08/17/24 19:06 Course Vital Signs Vital signs: Vital Signs - 8 hr 08/17/24 19:06 Temperature 97.9 F Pulse Rate 74 Respiratory Rate 16 Blood Pressure 177/86 H Pulse Oximetry 97 Oxygen Delivery Method Room Air MDM - Male Genitourinary MDM Narrative Medical decision making narrative: Vital signs, nurse triage note, medication list, previous ER visits, and all imaging study reviewed. Nurse was able to make adjustments with Nicole catheter being positional and I able to drain over 1000 cc. Patient feels much better on reexamination. Discharge Plan Departure Patient Disposition: Home Clinical Impression: Complication, blocked Nicole catheter Qualifiers: Encounter type: initial encounter Qualified Code(s): T83.091A - Other mechanical complication of indwelling urethral catheter, initial encounter Instructions: How to Care for Your Nicole Catheter -- Male Activity Restrictions/Additional Instructions: Return with new or worsening symptoms. Follow up with Urology as previously scheduled. Prescriptions: No Action loratadine [Claritin] 10 MG tablet 10 mg PO Q DAY PRN Qty: 0 multivitamin Tablet 1 tab PO DAILY Qty: 0 flaxseed oil 1,000 mg Capsule 1 cap PO DAILY Qty: 0 Glucosamine Sulf-Chondroitin 1 tab PO BID Qty: 0 ascorbic acid (vitamin C) [Vitamin C] 1,000 mg Tablet 1,000 mg PO QDAY Qty: 0 aspirin 81 MG tablet,delayed release (DR/EC) 81 mg PO QDAY Qty: 30 (DME) pen needle, diabetic [Sure-Fine Pen [place]] 31 gauge x 3/16 needle See Dose Instructions .ROUTE .MEDSUPPLY Qty: 100 4RF Dose Instruction: As directed Rx Instructions: Use to inject lantus once a day. (DME) Insulin pen needles 12.7mmx29 gauge kit Qty: 100 4RF Dose Instruction: As directed Rx Instructions: Use to inject insulin once a day. sitagliptin phosphate [Januvia] 100 mg tablet 100 mg PO QDAY Qty: 90 3RF (DME) Glucose: Test Strips 0 .Route .MEDSUPPLY Qty: 100 11RF Dose Instruction: As directed Rx Instructions: As directed metoprolol tartrate 50 mg tablet 100 mg PO BID Qty: 360 0RF Rx Instructions: Take two tablets by mouth twice a day. PT NEEDS TO EST. CARE W/NEW PCP PRIOR TO FUTURE FILLS. 07/10/18 finasteride 5 mg tablet 5 mg PO QDAY Qty: 90 0RF Rx Instructions: Take one tablet by mouth once a day. PT NEEDS TO EST.CARE W/NEW PCP PRIOR TO FUTURE FILLS. 07/10/18 atorvastatin 40 mg tablet 40 mg PO BEDTIME Qty: 30 0RF Rx Instructions: Patient needs to est. care w/a new PCP prior to any future fills. 08/30/18 nifedipine [Procardia XL] 30 mg tablet extended release 24hr 30 mg PO Q DAY Qty: 90 0RF Rx Instructions: Needs appt w/PCP prior to next fill. Please call to sched. appt. 09/15/18 tolterodine 2 mg tablet 2 mg PO BID Qty: 180 3RF Glucose: Home Monitoring Kit 0 kit DAILY [place] 0 dev DAILY insulin glargine [Lantus Solostar U-100 Insulin] 100 unit/mL (3 mL) insulin pen 50 unit SUBCUT QPM metformin 500 mg tablet extended release 24 hr 1,500 mg PO BID Rx Instructions: 500 mg morning; 1000mg in evening terazosin 5 mg capsule 5 mg PO DAILY eplerenone 25 mg tablet 25 mg PO DAILY Entresto 24-26 mg tablet 1 tab PO BID torsemide 40 mg tablet 40 mg PO DAILY Referrals: Samir Zuniga MD [Primary Care Provider, Family Practice] Stand Alone Forms: Patient Portal/API
--- NOTE | 2024-08-17 21:03 | PC.NURSE ---
patient came in with 18fr parr 2way 10cc cath. not draining and the patient felt full. The end of the cath was disconnected from the bag and a piston type syringe was placed. Slight advancement of the cath while gentle suction applied. Immediately pulled back a full syringe full of kd colored urine. He reported feeling immediately better. 500cc was pulled out and stopped. blood pressure taken 154/84. patient felt fine. urine continued to drain. 1L kd colored urine removed before the flow subsided. pt reported feeling better. updated
[2024-08-17 21:33] VITALS: BP 138/78; PULSE 89; RESP 18; O2SAT 96
== END 2024-08-17 21:34 | disposition home or self-care (01) ==
PROVIDERS: Emergency Provider Family Medicine; PCP Family Medicine
DX: T83.091A Other mechanical complication of indwelling urethral catheter, initial encounter (principal); T83.098A Other mechanical complication of other urinary catheter, initial encounter; Y73.1 Therapeutic (nonsurgical) and rehabilitative gastroenterology and urology devices associated with adverse incidents; N40.1 Benign prostatic hyperplasia with lower urinary tract symptoms; N13.8 Other obstructive and reflux uropathy; R33.8 Other retention of urine
CPT/HCPCS: 51702; 99213; 99281